=== PATIENT | female | born 2000 | race Caucasian/White ===

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

== ENCOUNTER 2018-03-13 19:01 | Emergency (ER) | payer OTHER ==
[2018-03-13 19:16] VITALS: BP 145/83; PULSE 112; O2SAT 97
--- NOTE | 2018-03-13 19:27 | ERPHSYRPT ---
- History of Present Illness Time Seen by Provider: 03/13/18 19:21 Source: patient, family Exam Limitations: no limitations Patient Subjective Stated Complaint: Cough Triage Nursing Assessment: Patient ambulated into ER and transferred self to bed. Patient A +O X 3. Patient complains of cough for 4 weeks. Patient states cough is sometimes productive with small amount of thin clear sputum. Patient is 30 weeks and has saw her OB dr and has tried Benadryl and Claritin with no relief. Patient states she has been coughing so hard her head hurts. Patient's lungs noted to be clear a/p lucretia. O2 95% on room air. Physician History: The patient is a 17-year-old at 30 week female with her complaining of a worsening cough for 4 weeks. She has seen her family doctor/OB /[employer] doctor 2 weeks ago and was told it was an allergy. She was given allergy medicine that has not helped. She denies fever or chills. He has a dry cough. 2 or 3 times over the course of the past month she has coughed so hard that she has vomited. Timing/Duration: week(s) (4), gradual onset, worse Cough Quality/Degree: dry cough Possible Cause: no prior episodes Modifying Factors: Improves With: nothing Associated Symptoms: cough, No shortness of breath Allergies/Adverse Reactions: No Known Drug Allergies Allergy (Verified 03/13/18 19:16) Hx Tetanus, Diphtheria Vaccination/Date Given: No Hx Influenza Vaccination/Date Given: No Hx Pneumococcal Vaccination/Date Given: No Immunizations Up to Date: Yes - Review of Systems Constitutional: No Fever, No Chills Eyes: No Symptoms Ears, Nose, & Throat: No Symptoms Respiratory: Cough, No Dyspnea, No Wheezing Cardiac: No Chest Pain, No Edema, No Syncope Abdominal/Gastrointestinal: No Abdominal Pain, No Nausea, No Vomiting, No Diarrhea Genitourinary Symptoms: No Dysuria Musculoskeletal: No Back Pain, No Neck Pain Skin: No Rash Neurological: No Dizziness, No Focal Weakness, No Sensory Changes Psychological: No Symptoms Endocrine: No Symptoms Hematologic/Lymphatic: No Symptoms Immunological/Allergic: No Symptoms All Other Systems: Reviewed and Negative - Past Medical History Pertinent Past Medical History: No Neurological History: No Pertinent History ENT History: No Pertinent History Cardiac History: No Pertinent History Respiratory History: No Pertinent History Endocrine Medical History: No Pertinent History Musculoskeletal History: No Pertinent History GI Medical History: No Pertinent History History: No Pertinent History Psycho-Social History: No Pertinent History Female Reproductive Disorders: No Pertinent History - Past Surgical History Past Surgical History: No Neuro Surgical History: No Pertinent History Cardiac: No Pertinent History Respiratory: No Pertinent History Gastrointestinal: No Pertinent History Genitourinary: No Pertinent History Musculoskeletal: No Pertinent History Female Surgical History: No Pertinent History - Social History Smoking Status: Never smoker Exposure to second hand smoke: Yes Drug Use: none Patient Lives Alone: No - Female History Hx Now: Yes Expected Date of Delivery: 05/19/18 - Nursing Vital Signs Nursing Vital Signs: Initial Vital Signs Temperature 97.5 F 03/13/18 19:06 Pulse Rate 112 H 03/13/18 19:06 Respiratory Rate 18 03/13/18 19:06 Blood Pressure 145/83 03/13/18 19:06 O2 Sat by Pulse Oximetry 97 03/13/18 19:06 Pain Scale Pain Intensity 0 - Physical Exam General Appearance: no apparent distress, alert Eye Exam: PERRL/EOMI, eyes nml inspection Ears, Nose, Throat Exam: normal ENT inspection, TMs normal, pharynx normal, moist mucous membranes Neck Exam: normal inspection, non-tender, supple, full range of motion Respiratory Exam: normal breath sounds, lungs clear, airway intact, No respiratory distress, No crackles/rales, No rhonchi, No wheezing Cardiovascular Exam: normal heart sounds, tachycardia Gastrointestinal/Abdomen Exam: soft, No tenderness Pelvic Exam: not done Rectal Exam: not done Back Exam: normal inspection, No CVA tenderness, No vertebral tenderness Extremity Exam: normal inspection, normal range of motion Neurologic Exam: alert, oriented x 3, cooperative, normal mood/affect, sensation nml, No motor deficits Skin Exam: normal color, warm, dry, No rash Lymphatic Exam: No adenopathy SpO2 Interpretation: normal SpO2: 97 Oxygen Delivery: Room Air - Progress Progress: unchanged Blood Culture(s) Obtained: No Antibiotics given: No Counseled pt/family regarding: diagnosis, need for follow-up - Departure Time of Disposition: 19:24 Departure Disposition: Home Clinical Impression: Bronchitis Condition: Stable Critical Care Time: No Referrals: KAT CARMONA MD [Primary Care Provider] - Additional Instructions: You have bronchitis. Take azithromycin 500 mg on day one, followed by 250 mg daily for days 2 through 5. Take Tylenol as needed for discomfort. Follow-up with your OB doctor in 1-2 days. Prescriptions: Azithromycin 250 mg [Zithromax 250 MG TABLET] 250 mg PO ZPACK #6 tablet
== END 2018-03-13 19:30 | disposition home or self-care (01) ==
LOC: ED 19:01
DX: O26.893 Other specified pregnancy related conditions, third trimester (principal); J40 Bronchitis, not specified as acute or chronic; Z3A.30 30 weeks gestation of pregnancy
CPT/HCPCS: 99283

== ENCOUNTER 2018-03-16 13:49 | Observation (INO) | payer OTHER ==
[2018-03-16 14:21] LABS: BASOPHIL % 0.3 % (0.0-0.4); Basophil (Absolute #) 0.04 (0-0.4); Eosinophil % 9.3 % (0.00-5.0); Eosinophil (Absolute #) 1.07 (0-0.5); Granulocyte Absolute (ANC) 7.91 (1.4-6.9); Granulocytes % 68.6 % (36.0-66.0); Hematocrit 33.8 % (35-47); Hemoglobin 11.3 gm/dl (12.0-16.0); Lymphocyte (Absolute #) 1.73 (1.0-4.6); Mean Cell Volume 90.4 fl (78-100); Mean Corpuscular Hemoglobin 30.2 pg (26-32); Mean Corpuscular Hgb Concent. 33.4 g/dl (32-36); Mean Platelet Volume 10.5 fl (6-9.5); Monocyte (Absolute #) 0.78 (0.0-1.3); Monocytes % 6.8 % (0.0-12.0); Platelet Count 266 K/mm3 (150-450); Red Blood Count 3.74 M/mm3 (4.1-5.4); White Blood Count 11.5 K/mm3 (4.0-10.5)
[2018-03-16] MEDS ORDERED: Lactated Ringers 1,000 ML IV ONE (14:30)
[2018-03-16 14:36] LABS: ANION GAP 11.9 MEQ/L (5-15); BLOOD UREA NITROGEN 6 mg/dL (7-17); CHLORIDE 107 mmol/L (98-107); Calcium 8.7 mg/dL (8.4-10.2); Carbon Dioxide 22 mmol/L (22-30); Creatinine 1 0.46 mg/dL (0.52-1.04); Glucose 85 mg/dL (74-106); Potassium 3.8 mmol/L (3.5-5.1); SODIUM 138 mmol/L (137-145)
--- NOTE | 2018-03-16 14:44 | XRAY ---
Indication: Cough and congestion 6 weeks. Comparison: February 20, 2017. PA/lateral chest again demonstrates normal heart, lungs, and bony thorax.
[2018-03-16] MEDS ORDERED: PROVENTIL COMMON CANISTER IH SCH (15:00)
[2018-03-16 15:19] VITALS: O2SAT 98
[2018-03-16] MEDS ORDERED: PROVENTIL 2.5 MG/3 ML NEB IH PRN (15:19)
[2018-03-16] MEDS: Lactated Ringers 1,000 ML IV SCH (16:05)
[2018-03-16] MEDS: ROCEPHIN 1 Gm-D5w 50 ml Bag** 1 G/50 ML IVPB IV SCH (16:05)
[2018-03-16] MEDS: Pepcid 20 MG PO SCH (21:32)
[2018-03-16] MEDS: Tussionex Pennkinetic Susp PO SCH (21:50)
[2018-03-16] MEDS: Zofran 4 MG/2 ML VIAL IV PRN (23:32)
[2018-03-17] MEDS: Lactated Ringers 1,000 ML IV SCH ×2 (00:34→08:41)
[2018-03-17] MEDS ORDERED: Celestone Soluspan 6MG/ML IM ONE (07:49)
[2018-03-17] MEDS: Pepcid 20 MG PO SCH (08:56)
[2018-03-17] MEDS: Zofran 4 MG/2 ML VIAL IV PRN (08:57)
[2018-03-17] MEDS ORDERED: Flonase NASAL NS SCH (10:00)
[2018-03-17 10:08] LABS: Hematocrit 31.5 % (35-47); Hemoglobin 10.6 gm/dl (12.0-16.0); Mean Cell Volume 90.3 fl (78-100); Mean Corpuscular Hgb Concent. 33.7 g/dl (32-36); Mean Platelet Volume 10.5 fl (6-9.5); Platelet Count 235 K/mm3 (150-450); Red Blood Count 3.49 M/mm3 (4.1-5.4); Red Cell Distribution Width 13.1 % (11.5-14.0); White Blood Count 10.4 K/mm3 (4.0-10.5)
[2018-03-17 10:09] LABS: Mean Corpuscular Hemoglobin 30.3 pg (26-32)
[2018-03-17] MEDS: Tussionex Pennkinetic Susp PO SCH (10:23)
[2018-03-17 11:02] LABS: ABO TYPING O; Antibody Screen NEGATIVE (NEGATIVE); RH TYPING POSITIVE
[2018-03-17] MEDS: ROCEPHIN 1 Gm-D5w 50 ml Bag** 1 G/50 ML IVPB IV SCH (12:14)
[2018-03-17 15:04] VITALS: BP 122/73; PULSE 106
[2018-03-17] MEDS ORDERED: AFRIN NASAL SPRAY NS SCH (22:00)
[2018-03-18 04:42] LABS: HIV Antigen/Antibody Combo Non Reactive (Non Reactive)
[2018-03-18 08:53] LABS: Hepatitis B Sur Ag Screen Non Reactive (Non Reactive); Hepatitis C Antibody by EIA Non Reactive (Non Reactive)
[2018-03-20 11:52] LABS: Immune Status: Immune
[2018-03-20 14:10] LABS: RPR Screen Non Reactive (Non Reactive)
== END 2018-03-17 14:45 | disposition home or self-care (01) ==
LOC: MED SURG 13:49
PROVIDERS: ADMIT Family Medicine; ATTEND Family Medicine
DX: J32.9 Chronic sinusitis, unspecified (principal); R05 Cough
CPT/HCPCS: 36415; 71046; 80048; 80055; 85025; 86803; 87491; 87591; 94150; G0378; J0696; J0702; J2405; A9270-GY

== ENCOUNTER 2018-05-07 00:25 | Observation (INO) | payer MEDICAID ==
[2018-05-07 01:04] VITALS: BP 124/71; PULSE 95
[2018-05-07 01:13] LABS: Amphetamine,Urine NEGATIVE (NEGATIVE); Barbiturate,Urine NEGATIVE (NEGATIVE); Benzodiazepine,Urine NEGATIVE (NEGATIVE); Cocaine,Urine NEGATIVE (NEGATIVE); Methadone,Urine NEGATIVE (NEGATIVE); Opiate,Urine NEGATIVE (NEGATIVE); PCP,Urine NEGATIVE (NEGATIVE); THC,Urine NEGATIVE (NEGATIVE)
[2018-05-07] MEDS ORDERED: TYLENOL 325 MG ONE (01:13)
[2018-05-07] MEDS ORDERED: TYLENOL 325 MG PO ONE (01:20)
[2018-05-07 02:26] LABS: Appearance SLIGHTLY CLOUDY (CLEAR); Bilirubin NEGATIVE (NEGATIVE); Blood NEGATIVE Ery/ul (0-5); Glucose NEGATIVE (NEGATIVE); Ketones NEGATIVE (NEGATIVE); Leukocyte Esterase LARGE (NEGATIVE); Nitrite NEGATIVE (NEGATIVE); Protein,Urine Dip NEGATIVE (Negative); Specific Gravity 1.004 (1.005-1.025); Urobilinogen NEGATIVE mg/dL (0-1)
== END 2018-05-07 03:05 | disposition home or self-care (01) ==
LOC: OB 00:25 → UNDOADMOB 00:25 → UNDODISOB 03:05
PROVIDERS: ADMIT Family Medicine; ATTEND Family Medicine
DX: Z34.83 Encounter for supervision of other normal pregnancy, third trimester (principal)
CPT/HCPCS: 80307; 81001; 87086; G0378; A9270-GY

== ENCOUNTER 2018-05-16 04:52 | Inpatient (IN) | payer MEDICAID ==
[2018-05-16] MEDS ORDERED: Lactated Ringers 1,000 ML IV SCH (05:00)
[2018-05-16] MEDS ORDERED: BRETHINE 1 MG/ML SQ PRN (05:00)
[2018-05-16] MEDS ORDERED: XYLOCAINE 1% HCL 20 ML MDV IJ PRN (05:00)
[2018-05-16] MEDS ORDERED: PITOCIN 30 UNITS/ LR 500 ML 500 ML IV SCH ×2 (05:00)
[2018-05-16 05:28] LABS: BASOPHIL % 0.4 % (0.0-0.4); Basophil (Absolute #) 0.04 (0-0.4); Eosinophil % 2.2 % (0.00-5.0); Eosinophil (Absolute #) 0.24 (0-0.5); Granulocytes % 66.5 % (36.0-66.0); Hematocrit 38.1 % (35-47); Hemoglobin 12.6 gm/dl (12.0-16.0); Lymphocyte (Absolute #) 2.63 (1.0-4.6); Lymphocytes % 24.3 % (24.0-44.0); Mean Cell Volume 90.5 fl (78-100); Mean Corpuscular Hemoglobin 29.9 pg (26-32); Mean Corpuscular Hgb Concent. 33.1 g/dl (32-36); Mean Platelet Volume 11.2 fl (6-9.5); Monocyte (Absolute #) 0.71 (0.0-1.3); Monocytes % 6.6 % (0.0-12.0); Platelet Count 238 K/mm3 (150-450); Red Blood Count 4.21 M/mm3 (4.1-5.4); Red Cell Distribution Width 13.3 % (11.5-14.0); White Blood Count 10.8 K/mm3 (4.0-10.5)
[2018-05-16 06:50] LABS: Amphetamine,Urine NEGATIVE (NEGATIVE); Barbiturate,Urine NEGATIVE (NEGATIVE); Benzodiazepine,Urine NEGATIVE (NEGATIVE); Cocaine,Urine NEGATIVE (NEGATIVE); Methadone,Urine NEGATIVE (NEGATIVE); Opiate,Urine NEGATIVE (NEGATIVE); PCP,Urine NEGATIVE (NEGATIVE); THC,Urine NEGATIVE (NEGATIVE)
[2018-05-16] MEDS ORDERED: Lactated Ringers 1,000 ML IV ONE (10:37)
[2018-05-16] MEDS ORDERED: OB EPIDURAL NAROPIN/SUFENTANIL IN NACL EPIDURAL PRN (10:37)
[2018-05-16] MEDS ORDERED: Ephedrine Sulfate 50 MG/ML IV PRN (10:37)
[2018-05-16] MEDS ORDERED: Dulcolax 10 MG SUPP PR PRN (14:52)
[2018-05-16] MEDS ORDERED: Anucort-HC SUPPOSITORY PR PRN (14:52)
[2018-05-16] MEDS ORDERED: LANSINOH 40 GM TOP PRN (14:52)
[2018-05-16] MEDS ORDERED: Mylicon 80MG PO PRN (14:52)
[2018-05-16] MEDS ORDERED: Ambien 10 MG PO PRN (14:52)
[2018-05-16] MEDS ORDERED: NORCO 5/325 MG PO PRN (14:52)
[2018-05-16] MEDS ORDERED: CORTISONE 1% CREAM TP PRN (14:52)
[2018-05-16] MEDS ORDERED: TUCKS TP PRN (14:52)
[2018-05-16] MEDS ORDERED: Dermoplast Spray TP PRN (14:52)
[2018-05-16] MEDS ORDERED: Zofran 4 MG/2 ML VIAL IV PRN (17:42)
[2018-05-16] MEDS: MOTRIN 400 MG PO PRN (18:31)
[2018-05-16] MEDS: Colace 100 MG PO SCH (22:44)
[2018-05-16] MEDS: TYLENOL EXTRA STRENGTH 500 MG PO PRN (23:34)
[2018-05-17] MEDS: MOTRIN 400 MG PO PRN ×2 (03:11→11:42)
[2018-05-17 06:31] LABS: BASOPHIL % 0.2 % (0.0-0.4); Basophil (Absolute #) 0.02 (0-0.4); Eosinophil % 2.1 % (0.00-5.0); Eosinophil (Absolute #) 0.25 (0-0.5); Granulocyte Absolute (ANC) 8.44 (1.4-6.9); Granulocytes % 69.5 % (36.0-66.0); Hematocrit 33.8 % (35-47); Hemoglobin 11.3 gm/dl (12.0-16.0); Lymphocyte (Absolute #) 2.38 (1.0-4.6); Lymphocytes % 19.6 % (24.0-44.0); Mean Cell Volume 90.6 fl (78-100); Mean Corpuscular Hgb Concent. 33.4 g/dl (32-36); Mean Platelet Volume 11.2 fl (6-9.5); Monocyte (Absolute #) 1.04 (0.0-1.3); Monocytes % 8.6 % (0.0-12.0); Platelet Count 210 K/mm3 (150-450); Red Blood Count 3.73 M/mm3 (4.1-5.4); Red Cell Distribution Width 13.1 % (11.5-14.0); White Blood Count 12.1 K/mm3 (4.0-10.5)
[2018-05-17 06:45] LABS: Mean Corpuscular Hemoglobin 30.2 pg (26-32)
[2018-05-17] MEDS: TYLENOL EXTRA STRENGTH 500 MG PO PRN (08:24)
[2018-05-17] MEDS: Colace 100 MG PO SCH (08:24)
[2018-05-17] MEDS ORDERED: FERREX 150 PO SCH (10:00)
[2018-05-17 17:51] VITALS: BP 113/87; PULSE 85
== END 2018-05-17 18:05 | disposition home or self-care (01) | DRG 807 ==
LOC: OB 04:52 → OBSVTOIN 10:13
PROVIDERS: ADMIT Family Medicine; ATTEND Family Medicine
PROC: 10E0XZZ Delivery of Products of Conception, External Approach (ICD-10-PCS; principal; 2018-05-16)
DX: O80 Encounter for full-term uncomplicated delivery (principal); Z37.0 Single live birth; Z3A.39 39 weeks gestation of pregnancy
CPT/HCPCS: 36415; 80307; 85025; G0378; J2405; J2590; J2795; A9270-GY

== ENCOUNTER 2018-05-26 14:22 | Emergency (ER) | payer MEDICAID ==
[2018-05-26 14:55] VITALS: BP 98/56; O2SAT 98
--- NOTE | 2018-05-26 14:58 | ERPHSYRPT ---
- History of Present Illness Time Seen by Provider: 05/26/18 14:53 Historian: patient Exam Limitations: no limitations Physician History: The patient is a 18-year-old female who just delivered a female baby vaginally one week ago. This is her second child. She complains of not having a bowel movement for one week. The same thing happened after the of her first child. She took 2 laxatives an hour ago and has not had a bowel movement. Her appetite has decreased because she feels full. She wants to make sure she has a bowel movement by 6 PM because she has a [employer] to go to. Timing/Duration: week(s) (1), gradual onset Activities at Onset: none Quality: fullness Severity of Pain-Max: mild Severity of Pain-Current: mild Modifying Factors: Improves With: nothing Associated Symptoms: other (constipation) Previous symptoms: same symptoms as today Allergies/Adverse Reactions: No Known Drug Allergies Allergy (Verified 05/16/18 05:35) Home Medications: Vits W-Ca,Fe,FA(<1Mg) [] 1 each PO DAILY 03/16/18 [History] Ranitidine HCl [Zantac] 150 mg PO BID 03/16/18 [History] Montelukast Sodium 10 mg [Singulair 10 MG] 10 mg PO DAILY 05/16/18 [History] Ondansetron HCl [Zofran] 4 mg PO Q8H PRN 05/16/18 [History] Hx Tetanus, Diphtheria Vaccination/Date Given: No Hx Influenza Vaccination/Date Given: No Hx Pneumococcal Vaccination/Date Given: No - Review of Systems Constitutional: No Fever, No Chills Eyes: No Symptoms Ears, Nose, & Throat: No Symptoms Respiratory: No Cough, No Dyspnea Cardiac: No Chest Pain, No Edema, No Syncope Abdominal/Gastrointestinal: Abdominal Pain, Constipation Genitourinary Symptoms: No Dysuria Musculoskeletal: No Back Pain, No Neck Pain Skin: No Rash Neurological: No Dizziness, No Focal Weakness, No Sensory Changes Psychological: No Symptoms Endocrine: No Symptoms Hematologic/Lymphatic: No Symptoms Immunological/Allergic: No Symptoms All Other Systems: Reviewed and Negative - Past Medical History Pertinent Past Medical History: Yes Neurological History: No Pertinent History ENT History: No Pertinent History Cardiac History: No Pertinent History Respiratory History: No Pertinent History Endocrine Medical History: No Pertinent History Musculoskeletal History: No Pertinent History GI Medical History: No Pertinent History History: No Pertinent History Psycho-Social History: No Pertinent History Female Reproductive Disorders: No Pertinent History Other Medical History: environmental allergies - Past Surgical History Past Surgical History: No Neuro Surgical History: No Pertinent History Cardiac: No Pertinent History Respiratory: No Pertinent History Gastrointestinal: No Pertinent History Genitourinary: No Pertinent History Musculoskeletal: No Pertinent History Female Surgical History: No Pertinent History - Social History Smoking Status: Former smoker Exposure to second hand smoke: Yes (low) Drug Use: none Patient Lives Alone: No - Nursing Vital Signs Nursing Vital Signs: Initial Vital Signs Temperature 97.4 F 05/26/18 14:41 Pulse Rate 78 05/26/18 14:41 Respiratory Rate 16 05/26/18 14:41 Blood Pressure 98/56 05/26/18 14:41 O2 Sat by Pulse Oximetry 98 05/26/18 14:41 Pain Scale Pain Intensity 5 - Physical Exam General Appearance: no apparent distress, alert Eye Exam: PERRL/EOMI, eyes nml inspection Ears, Nose, Throat Exam: normal ENT inspection, pharynx normal, moist mucous membranes Neck Exam: normal inspection, non-tender, supple, full range of motion Respiratory Exam: normal breath sounds, lungs clear, No respiratory distress Cardiovascular Exam: regular rate/rhythm, normal heart sounds Gastrointestinal/Abdomen Exam: soft, No tenderness, No mass Pelvic Exam: not done Rectal Exam: not done Back Exam: normal inspection, normal range of motion, No CVA tenderness, No vertebral tenderness Extremity Exam: normal inspection, normal range of motion, pelvis stable Neurologic Exam: alert, oriented x 3, cooperative, normal mood/affect, nml cerebellar function, sensation nml, No motor deficits Skin Exam: normal color, warm, dry SpO2 Interpretation: normal - Radiology Exams Abdomen X-ray Interpretation: Reviewed by me, Teleradiologist Report (per Dr Matos), Other (fecal stasis with rectal impaction.) Ordered Tests: Active Orders 24 hr Category Date Time Status KUB Stat Exams 05/26/18 14:57 Taken - Progress Progress: unchanged Progress Note: 05/26/18 14:57 The patient will have an abdominal plain film. The patient declined that I examine her. The patient wants to have magnesium citrate purchased from [employer]. 05/26/18 15:24 The abdominal x-ray showed fecal stasis with rectal impaction. The patient was offered of manual disimpaction and the patient declined. Counseled pt/family regarding: rad results - Departure Time of Disposition: 15:19 Departure Disposition: Home Clinical Impression: Constipation Condition: Stable Critical Care Time: No Referrals: KAT CARMONA MD [Primary Care Provider] - Additional Instructions: You have constipation and impaction in the rectum. You declined physical removal of the impaction. Take mag citrate one full bottle and stay well- hydrated. Follow-up with Dr. Carmona as needed.
--- NOTE | 2018-05-26 15:19 | XRAY ---
Indication: Constipation. Comparison: None KUB demonstrates mild scattered colonic fecal debris with mild rectal impaction. Solid organs unremarkable. Osseous structures intact with mild levoscoliosis. Impression: Mild fecal stasis with rectal impaction.
[2018-05-26 15:42] VITALS: PULSE 76
== END 2018-05-26 15:43 | disposition home or self-care (01) ==
LOC: ED 14:22
DX: O90.89 Other complications of the puerperium, not elsewhere classified (principal); K59.00 Constipation, unspecified; K56.49 Other impaction of intestine
CPT/HCPCS: 74018; 99283

== ENCOUNTER 2018-07-09 16:44 | Emergency (ER) | payer OTHER ==
--- NOTE | 2018-07-09 17:29 | ERPHSYRPT ---
- History of Present Illness Time Seen by Provider: 07/09/18 17:23 Historian: patient Exam Limitations: no limitations Patient Subjective Stated Complaint: pt reports diarrhea that started approx 8 hours ago. States she has had 10 episodes watery diarrhea with nausea. denies vomiting and fever. Triage Nursing Assessment: PINK/WARM/DRY, RESP EASY, A&OX4, STEADY GAIT, PALE/ DRY LIPS AND ORAL MUCOSA NOTED. AFEBRILE. Physician History: The patient is a 18-year-old female with her complaining of watery diarrhea that began this morning. She has had multiple episodes, at least 10 in number. She also has nausea without vomiting. She has tried to drink water but is unable to because of the nausea. She is unable to eat anything. She is lightheaded when she stands. She complains also of some mild abdominal cramping. Her past medical history is unremarkable. Timing/Duration: today, sudden, worse Activities at Onset: none Quality: cramping Abdominal Pain Onset Location: generalized abdomen Pain Radiation: no radiation Severity of Pain-Max: moderate Severity of Pain-Current: moderate Modifying Factors: Improves With: nothing Associated Symptoms: nausea, other (diarrhea), No vomiting Previous symptoms: no prior history Allergies/Adverse Reactions: No Known Drug Allergies Allergy (Verified 05/16/18 05:35) Home Medications: Vits W-Ca,Fe,FA(<1Mg) [] 1 each PO DAILY 03/16/18 [History] Ranitidine HCl [Zantac] 150 mg PO BID 03/16/18 [History] Montelukast Sodium 10 mg [Singulair 10 MG] 10 mg PO DAILY 05/16/18 [History] Ondansetron HCl [Zofran] 4 mg PO Q8H PRN 05/16/18 [History] Hx Tetanus, Diphtheria Vaccination/Date Given: Yes Hx Influenza Vaccination/Date Given: Yes Hx Pneumococcal Vaccination/Date Given: No Immunizations Up to Date: Yes - Review of Systems Constitutional: No Fever, No Chills Eyes: No Symptoms Ears, Nose, & Throat: No Symptoms Respiratory: No Cough, No Dyspnea Cardiac: No Chest Pain, No Edema, No Syncope Abdominal/Gastrointestinal: Abdominal Pain, Nausea, Diarrhea, No Vomiting Genitourinary Symptoms: No Dysuria Musculoskeletal: No Back Pain, No Neck Pain Skin: No Rash Neurological: No Dizziness, No Focal Weakness, No Sensory Changes Psychological: No Symptoms Endocrine: No Symptoms Hematologic/Lymphatic: No Symptoms Immunological/Allergic: No Symptoms All Other Systems: Reviewed and Negative - Past Medical History Pertinent Past Medical History: Yes Neurological History: No Pertinent History ENT History: No Pertinent History Cardiac History: No Pertinent History Respiratory History: No Pertinent History Endocrine Medical History: No Pertinent History Musculoskeletal History: No Pertinent History GI Medical History: No Pertinent History History: No Pertinent History Psycho-Social History: No Pertinent History Female Reproductive Disorders: No Pertinent History Other Medical History: environmental allergies - Past Surgical History Past Surgical History: No Neuro Surgical History: No Pertinent History Cardiac: No Pertinent History Respiratory: No Pertinent History Gastrointestinal: No Pertinent History Genitourinary: No Pertinent History Musculoskeletal: No Pertinent History Female Surgical History: No Pertinent History - Social History Smoking Status: Never smoker Exposure to second hand smoke: No Drug Use: none Patient Lives Alone: No - Female History Hx Last Menstrual Period: 06/23/18 Hx Now: No - Nursing Vital Signs Nursing Vital Signs: Initial Vital Signs Pulse Rate 90 07/09/18 17:35 Respiratory Rate 20 07/09/18 17:35 Blood Pressure 110/76 07/09/18 17:35 O2 Sat by Pulse Oximetry 98 07/09/18 17:35 Pain Scale Pain Intensity 4 - Physical Exam General Appearance: mild distress Eye Exam: PERRL/EOMI, eyes nml inspection Ears, Nose, Throat Exam: dry mucous membranes Neck Exam: normal inspection, non-tender, supple, full range of motion Respiratory Exam: normal breath sounds, lungs clear, No respiratory distress Cardiovascular Exam: regular rate/rhythm, normal heart sounds Gastrointestinal/Abdomen Exam: soft, No tenderness, No mass Pelvic Exam: not done Rectal Exam: not done Back Exam: normal inspection, normal range of motion, No CVA tenderness, No vertebral tenderness Extremity Exam: normal inspection, normal range of motion, pelvis stable Neurologic Exam: alert, oriented x 3, cooperative, normal mood/affect, nml cerebellar function, sensation nml, No motor deficits Skin Exam: normal color, warm, dry SpO2 Interpretation: normal O2 Delivery: Room Air - Radiology Exams Abdomen X-ray Interpretation: Interpreted by me, Negative (discharge.) Ordered Tests: Active Orders 24 hr Category Date Time Status IV Insertion STAT Care 07/09/18 17:31 Active KUB Stat Exams 02/10/19 17:32 Taken BMP Stat Lab 07/09/18 17:50 Completed CBC W DIFF Stat Lab 07/09/18 17:50 Completed HCG QUALITATIVE,SERUM Stat Lab 07/09/18 17:50 Completed Lactic Acid Stat Lab 07/09/18 17:31 Completed Medication Summary Discontinued Medications Generic Name Dose Route Start Last Admin Trade Name Rick PRN Reason Stop Dose Admin Sodium Chloride 1,000 mls @ 999 mls/hr 07/09/18 17:31 07/09/18 17:58 Sodium Chloride 0.9% 1000 Ml IV 07/09/18 18:31 999 mls/hr .Q1H1M STA Administration Sodium Chloride Confirm 07/09/18 17:55 Sodium Chloride 0.9% 1000 Ml Administered 07/09/18 17:56 Dose 1,000 mls @ ud .ROUTE .STK-MED ONE Ondansetron HCl 4 mg 07/09/18 17:31 07/09/18 17:58 Zofran 4 Mg/2 Ml Vial IV 07/09/18 17:32 4 mg STAT ONE Administration Ondansetron HCl Confirm 07/09/18 17:55 Zofran 4 Mg/2 Ml Vial Administered 07/09/18 17:56 Dose 4 mg .ROUTE .STK-MED ONE Lab/Rad Data: Laboratory Result Diagrams 07/09/18 17:50 07/09/18 17:50 Laboratory Results 07/09/18 07/09/18 07/09/18 Range/Units 17:50 17:50 17:50 WBC 10.4 (4.0-10.5) K/mm3 RBC 4.96 (4.1-5.4) M/mm3 Hgb 14.2 (12.0-16.0) gm/dl Hct 43.2 (35-47) % MCV 87.1 (78-100) fl MCH 28.6 (26-32) pg MCHC 32.9 (32-36) g/dl RDW 12.3 (11.5-14.0) % Plt Count 374 (150-450) K/mm3 MPV 10.7 H (6-9.5) fl Gran % 74.5 H (36.0-66.0) % Eos # (Auto) 1.02 H (0-0.5) Absolute Lymphs (auto) 1.05 (1.0-4.6) Absolute Monos (auto) 0.56 (0.0-1.3) Lymphocytes % 10.1 L (24.0-44.0) % Monocytes % 5.4 (0.0-12.0) % Eosinophils % 9.8 H (0.00-5.0) % Basophils % 0.2 (0.0-0.4) % Absolute Granulocytes 7.78 H (1.4-6.9) Basophils # 0.02 (0-0.4) Sodium 142 (137-145) mmol/L Potassium 4.0 (3.5-5.1) mmol/L Chloride 108 H (98-107) mmol/L Carbon Dioxide 20 L (22-30) mmol/L Anion Gap 17.9 H (5-15) MEQ/L BUN 14 (7-17) mg/dL Creatinine 0.78 (0.52-1.04) mg/dL Estimated GFR > 60.0 ML/MIN Glucose 89 (74-106) mg/dL Lactic Acid (0.4-2.0) Calcium 9.7 (8.4-10.2) mg/dL Serum , Qual NEGATIVE (Negative) 07/09/18 Range/Units 17:31 WBC (4.0-10.5) K/mm3 RBC (4.1-5.4) M/mm3 Hgb (12.0-16.0) gm/dl Hct (35-47) % MCV (78-100) fl MCH (26-32) pg MCHC (32-36) g/dl RDW (11.5-14.0) % Plt Count (150-450) K/mm3 MPV (6-9.5) fl Gran % (36.0-66.0) % Eos # (Auto) (0-0.5) Absolute Lymphs (auto) (1.0-4.6) Absolute Monos (auto) (0.0-1.3) Lymphocytes % (24.0-44.0) % Monocytes % (0.0-12.0) % Eosinophils % (0.00-5.0) % Basophils % (0.0-0.4) % Absolute Granulocytes (1.4-6.9) Basophils # (0-0.4) Sodium (137-145) mmol/L Potassium (3.5-5.1) mmol/L Chloride (98-107) mmol/L Carbon Dioxide (22-30) mmol/L Anion Gap (5-15) MEQ/L BUN (7-17) mg/dL Creatinine (0.52-1.04) mg/dL Estimated GFR ML/MIN Glucose (74-106) mg/dL Lactic Acid 1.1 (0.4-2.0) Calcium (8.4-10.2) mg/dL Serum , Qual (Negative) - Progress Progress: improved ( I want) Progress Note: 07/09/18 18:50 Improved after zofran 4 mg and fluids by IV. Counseled pt/family regarding: lab results, diagnosis, rad results - Departure Time of Disposition: 18:51 Departure Disposition: Home Clinical Impression: Diarrhea, Dehydration Condition: Stable Critical Care Time: No Referrals: KAT CARMONA MD [Primary Care Provider] - Additional Instructions: You had diarrhea today that has led to mild dehydration. You were given Zofran 4 mg and fluids by IV in the ER. Began with a bland diet and advance as tolerated. Stay well-hydrated. Follow-up with your primary medical doctor as needed.
[2018-07-09] MEDS ORDERED: Sodium Chloride 0.9% 1000 ML 1,000 ML IV STA (17:31)
[2018-07-09] MEDS ORDERED: Zofran 4 MG/2 ML VIAL IV ONE (17:31)
[2018-07-09] MEDS ORDERED: Zofran 4 MG/2 ML VIAL ONE (17:55)
[2018-07-09] MEDS ORDERED: Sodium Chloride 0.9% 1000 ML 1,000 ML ONE (17:55)
[2018-07-09 17:56] VITALS: PULSE 84; O2SAT 94
[2018-07-09 18:10] LABS: BASOPHIL % 0.2 % (0.0-0.4); Basophil (Absolute #) 0.02 (0-0.4); Eosinophil % 9.8 % (0.00-5.0); Eosinophil (Absolute #) 1.02 (0-0.5); Granulocyte Absolute (ANC) 7.78 (1.4-6.9); Granulocytes % 74.5 % (36.0-66.0); Hematocrit 43.2 % (35-47); Hemoglobin 14.2 gm/dl (12.0-16.0); Lymphocyte (Absolute #) 1.05 (1.0-4.6); Lymphocytes % 10.1 % (24.0-44.0); Mean Cell Volume 87.1 fl (78-100); Mean Corpuscular Hemoglobin 28.6 pg (26-32); Mean Corpuscular Hgb Concent. 32.9 g/dl (32-36); Mean Platelet Volume 10.7 fl (6-9.5); Monocyte (Absolute #) 0.56 (0.0-1.3); Monocytes % 5.4 % (0.0-12.0); Platelet Count 374 K/mm3 (150-450); Red Blood Count 4.96 M/mm3 (4.1-5.4); Red Cell Distribution Width 12.3 % (11.5-14.0); White Blood Count 10.4 K/mm3 (4.0-10.5)
[2018-07-09 18:28] LABS: ANION GAP 17.9 MEQ/L (5-15); BLOOD UREA NITROGEN 14 mg/dL (7-17); CHLORIDE 108 mmol/L (98-107); Calcium 9.7 mg/dL (8.4-10.2); Carbon Dioxide 20 mmol/L (22-30); Creatinine 1 0.78 mg/dL (0.52-1.04); Glucose 89 mg/dL (74-106); SODIUM 142 mmol/L (137-145)
[2018-07-09 19:09] VITALS: BP 115/77
--- NOTE | 2018-07-09 20:43 | XRAY ---
Indication: Diarrhea. Loss of appetite. Comparison: May 26, 2018. KUB nonacute and nonobstructed. Solid organs and osseous structures are unremarkable. Lung bases clear. Impression: Negative KUB.
== END 2018-07-09 19:10 | disposition home or self-care (01) ==
LOC: ED 16:44
DX: R19.7 Diarrhea, unspecified (principal); E86.0 Dehydration
CPT/HCPCS: 36000; 36415; 74018; 80048; 81025; 83605; 85025; 96360; 96374; 99284; J2405

== ENCOUNTER 2018-12-25 20:49 | Emergency (ER) | payer OTHER ==
[2018-12-25] MEDS ORDERED: Pepcid 20 MG PO ONE (21:57)
[2018-12-25] MEDS ORDERED: Pepcid 20 MG ONE (22:02)
[2018-12-25] MEDS ORDERED: DELTASONE 20 MG ONE (22:02)
--- NOTE | 2018-12-25 22:07 | ERPHSYRPT ---
- History of Present Illness Time Seen by Provider: 12/25/18 21:30 Source: patient, family Exam Limitations: no limitations Patient Subjective Stated Complaint: Allergic reaction/lucretia eye swelling Triage Nursing Assessment: Patient ambulated back to ED and transferred self to bed. Patient A+O X 3. Patient's skin pink, warm and dry. Patient complains of allergic reaction after using clear eyes eye drops for itchy eye relief and eye allergy relief. Patient applied one drop of each med into eye prior to coming in. Patient states a few minutes after second drop she devoloped bumps around eye and swelling. Patient's lucretia eyes noted to be swollen and red. Patient states her corneas feels numb. Physician History: 18 y/o white female with itching and burning of bilat eyes today. pt then put allergy eye drops into bilat eyes. pt noticed rash and itchiness around bilat eyes. no known other exposures. 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 sx improved but not completely resolved. Timing/Duration: today Severity: mild Modifying Factors: Improves With: medication Associated Symptoms: denies symptoms, No nausea, No vomiting, No abdominal pain , No shortness of breath Allergies/Adverse Reactions: No Known Drug Allergies Allergy (Verified 12/25/18 20:57) Hx Tetanus, Diphtheria Vaccination/Date Given: Yes Hx Influenza Vaccination/Date Given: Yes Hx Pneumococcal Vaccination/Date Given: No Immunizations Up to Date: Yes - Review of Systems Constitutional: No Symptoms Eyes: No Symptoms Ears, Nose, & Throat: No Symptoms, No Hoarse Respiratory: No Symptoms, No Dyspnea, No Stridor, No Wheezing Cardiac: No Symptoms Abdominal/Gastrointestinal: No Symptoms Genitourinary Symptoms: No Symptoms Musculoskeletal: No Symptoms Skin: Rash Neurological: No Symptoms Psychological: No Symptoms Endocrine: No Symptoms Hematologic/Lymphatic: No Symptoms Immunological/Allergic: No Symptoms All Other Systems: Reviewed and Negative - Past Medical History Pertinent Past Medical History: Yes Neurological History: No Pertinent History ENT History: No Pertinent History Cardiac History: No Pertinent History Respiratory History: No Pertinent History Endocrine Medical History: No Pertinent History Musculoskeletal History: No Pertinent History GI Medical History: No Pertinent History History: No Pertinent History Psycho-Social History: No Pertinent History Female Reproductive Disorders: No Pertinent History Other Medical History: environmental allergies - Past Surgical History Past Surgical History: No Neuro Surgical History: No Pertinent History Cardiac: No Pertinent History Respiratory: No Pertinent History Gastrointestinal: No Pertinent History Genitourinary: No Pertinent History Musculoskeletal: No Pertinent History Female Surgical History: No Pertinent History - Social History Smoking Status: Never smoker Exposure to second hand smoke: Yes Drug Use: none Patient Lives Alone: No - Female History Hx Last Menstrual Period: depo shot Hx Now: No - Nursing Vital Signs Nursing Vital Signs: Initial Vital Signs Temperature 98.3 F 12/25/18 20:58 Pulse Rate 94 H 12/25/18 20:58 Respiratory Rate 20 12/25/18 20:58 Blood Pressure 131/89 12/25/18 20:58 O2 Sat by Pulse Oximetry 99 12/25/18 20:58 Pain Scale Pain Intensity 0 - Physical Exam General Appearance: no apparent distress, alert, anxiety Eye Exam: PERRL/EOMI, eyes nml inspection Ears, Nose, Throat Exam: normal ENT inspection, moist mucous membranes Neck Exam: normal inspection, non-tender, supple, full range of motion Respiratory Exam: normal breath sounds, lungs clear, airway intact, No chest tenderness, No respiratory distress Cardiovascular Exam: regular rate/rhythm, normal heart sounds, normal peripheral pulses Gastrointestinal/Abdomen Exam: soft, normal bowel sounds, No tenderness Pelvic Exam: not done Rectal Exam: not done Back Exam: normal inspection, normal range of motion, vertebral tenderness, No CVA tenderness Extremity Exam: normal inspection, normal range of motion, pelvis stable Neurologic Exam: alert, oriented x 3, cooperative, 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 Skin Exam: rash (around bilat eyes) Lymphatic Exam: No adenopathy SpO2 Interpretation: normal SpO2: 99 O2 Delivery: Room Air - Course Nursing assessment & vital signs reviewed: Yes Ordered Tests: Medication Summary Generic Name Dose Route Start Last Admin Trade Name Freq PRN Reason Stop Dose Admin Prednisone 20 mg 12/26/18 21:58 Deltasone 20 Mg PO 12/26/18 21:59 STAT ONE Discontinued Medications Generic Name Dose Route Start Last Admin Trade Name Freq PRN Reason Stop Dose Admin Famotidine 40 mg 12/25/18 21:57 Pepcid 20 Mg PO 12/25/18 21:58 STAT ONE - Progress Progress: improved Counseled pt/family regarding: diagnosis, need for follow-up - Departure Departure Disposition: Home Clinical Impression: Allergic reaction Condition: Stable Critical Care Time: No Referrals: KAT CARMONA MD [Primary Care Provider] - Additional Instructions: continue over the counter benadryl every 8 hours for 4 days. return to ED if symptoms worsen Prescriptions: Prednisone 10 mg [Deltasone 10 mg] 10 mg PO TID #12 tablet Ranitidine HCl [Zantac] 150 mg PO BID 5 Days #10 tablet
[2018-12-25 22:09] VITALS: BP 116/59; PULSE 76; O2SAT 97
[2018-12-26] MEDS ORDERED: DELTASONE 20 MG PO ONE (21:58)
== END 2018-12-25 22:15 | disposition home or self-care (01) ==
LOC: ED 20:49
DX: H02.849 Edema of unspecified eye, unspecified eyelid (principal); T49.5X5A Adverse effect of ophthalmological drugs and preparations, initial encounter
CPT/HCPCS: 99283; A9270-GY

== ENCOUNTER 2020-05-08 00:03 | Observation (INO) | payer OTHER ==
--- NOTE | 2020-05-08 00:34 | ERPHSYRPT ---
- History of Present Illness Time Seen by Provider: 05/08/20 00:34 Historian: patient Exam Limitations: no limitations Physician History: This is a 20-year-old white female who is on a Depo-Provera shot and presents with periumbilical abdominal pain that was sudden onset approximately 3 to 4 hours prior to arrival to the emergency department. Patient did eat [employer] earlier in the day. No one else in the family had similar meal but no one else had abdominal pain complaints. She did have one episode of vomiting. She denies diarrhea. She has no chest pain she has no shortness of breath. Patient states that the pain was severe early on and has let up some but is still fairly significant. She is never had anything like this before. Patient has had no prior abdominal surgeries Timing/Duration: today Quality: sharpness, stabbing Abdominal Pain Onset Location: periumbilical Pain Radiation: no radiation Severity of Pain-Max: severe Severity of Pain-Current: moderate Modifying Factors: Improves With: vomiting Associated Symptoms: nausea, vomiting, No chest pain, No shortness of breath Previous symptoms: no prior history Allergies/Adverse Reactions: No Known Drug Allergies Allergy (Verified 05/08/20 00:51) Hx Tetanus, Diphtheria Vaccination/Date Given: Yes Hx Influenza Vaccination/Date Given: Yes Hx Pneumococcal Vaccination/Date Given: No Travel Risk - International Travel Have you traveled outside of the country in past 3 weeks: No - Coronavirus Screening Are you exhibiting any of the following symptoms?: No Close contact with a COVID-19 positive Pt in past 14-21 Days: No - Review of Systems Constitutional: No Symptoms Eyes: No Symptoms Ears, Nose, & Throat: No Symptoms Respiratory: No Symptoms Cardiac: No Symptoms Abdominal/Gastrointestinal: Abdominal Pain, Nausea, Vomiting, No Diarrhea, No Constipation Genitourinary Symptoms: No Symptoms Musculoskeletal: No Symptoms Skin: No Symptoms Neurological: No Symptoms Psychological: No Symptoms Endocrine: No Symptoms Hematologic/Lymphatic: No Symptoms Immunological/Allergic: No Symptoms All Other Systems: Reviewed and Negative - Past Medical History Pertinent Past Medical History: Yes Neurological History: No Pertinent History ENT History: No Pertinent History Cardiac History: No Pertinent History Respiratory History: No Pertinent History Endocrine Medical History: No Pertinent History Musculoskeletal History: No Pertinent History GI Medical History: No Pertinent History History: No Pertinent History Psycho-Social History: No Pertinent History Female Reproductive Disorders: No Pertinent History Other Medical History: environmental allergies - Past Surgical History Past Surgical History: No Neuro Surgical History: No Pertinent History Cardiac: No Pertinent History Respiratory: No Pertinent History Gastrointestinal: No Pertinent History Genitourinary: No Pertinent History Musculoskeletal: No Pertinent History Female Surgical History: No Pertinent History - Social History Smoking Status: Never smoker Exposure to second hand smoke: Yes Drug Use: none Patient Lives Alone: No - Nursing Vital Signs Nursing Vital Signs: Initial Vital Signs Temperature 97.7 F 05/08/20 00:48 Pulse Rate 106 H 05/08/20 00:48 Respiratory Rate 18 05/08/20 00:48 Blood Pressure 122/77 05/08/20 00:48 O2 Sat by Pulse Oximetry 98 05/08/20 00:48 Pain Scale Pain Intensity 3 - Physical Exam General Appearance: no apparent distress, alert, anxiety, thin Eye Exam: PERRL/EOMI, eyes nml inspection Ears, Nose, Throat Exam: normal ENT inspection, moist mucous membranes Neck Exam: normal inspection, non-tender, supple, full range of motion Respiratory Exam: normal breath sounds, lungs clear, airway intact, No chest tenderness, No respiratory distress Cardiovascular Exam: regular rate/rhythm, normal heart sounds, normal peripheral pulses Gastrointestinal/Abdomen Exam: soft, normal bowel sounds, tenderness (Periumbilical), guarding, No rebound, No hernia Pelvic Exam: not done Rectal Exam: not done Back Exam: normal inspection, normal range of motion, No CVA tenderness, No vertebral tenderness Extremity Exam: normal inspection, normal range of motion, pelvis stable Neurologic Exam: alert, oriented x 3, cooperative, patient access specialist II-XII nml as tested, normal mood/affect, nml cerebellar function, nml station & gait, sensation nml Skin Exam: normal color, warm, dry Lymphatic Exam: No adenopathy SpO2 Interpretation: normal O2 Delivery: Room Air - Course Nursing assessment & vital signs reviewed: Yes Ordered Tests: Active Orders 24 hr Category Date Time Status IV Insertion STAT Care 05/08/20 00:44 Active ABDOMEN AND PELVIS W/0 CONTRAS [CT] Stat Exams 05/08/20 00:44 Taken AMYLASE Stat Lab 05/08/20 01:00 Completed CBC W DIFF Stat Lab 05/08/20 01:00 Completed CMP Stat Lab 05/08/20 01:00 Completed HCG,QUALITATIVE URINE Stat Lab 05/08/20 00:48 Completed LIPASE Stat Lab 12/10/20 01:00 Completed Lactic Acid Stat Lab 05/08/20 01:20 Completed UA W/RFX UR CULTURE Stat Lab 05/08/20 00:48 Completed Transfer Order Routine Transfer 05/08/20 Ordered Medication Summary Discontinued Medications Generic Name Dose Route Start Last Admin Trade Name Freq PRN Reason Stop Dose Admin Hydromorphone HCl 0.5 mg 05/08/20 01:14 05/08/20 01:28 Hydromorphone 1 Mg/Ml Injection IV 05/08/20 01:15 0.5 mg STAT ONE Administration Hydromorphone HCl Confirm 05/08/20 01:23 Hydromorphone 1 Mg/Ml Injection Administered 05/08/20 01:24 Dose 1 mg .ROUTE .STK-MED ONE Sodium Chloride 1,000 mls @ 999 mls/hr 05/08/20 00:44 05/08/20 01:27 Sodium Chloride 0.9% 1000 Ml IV 05/08/20 01:44 999 mls/hr .Q1H1M STA Administration Sodium Chloride Confirm 05/08/20 01:23 Sodium Chloride 0.9% 1000 Ml Administered 05/08/20 01:24 Dose 1,000 mls @ ud .ROUTE .STK-MED ONE Sodium Chloride Confirm 05/08/20 02:45 Sodium Chloride 0.9% 1000 Ml Administered 05/08/20 02:46 Dose 1,000 mls @ ud .ROUTE .STK-MED ONE Sodium Chloride 1,000 mls @ 999 mls/hr 05/08/20 02:57 05/08/20 03:11 Sodium Chloride 0.9% 1000 Ml IV 05/08/20 03:57 999 mls/hr .Q1H1M STA Administration Sodium Chloride Confirm 05/08/20 02:59 Sodium Chloride 0.9% 1000 Ml Administered 05/08/20 03:00 Dose 1,000 mls @ ud .ROUTE .STK-MED ONE Ondansetron HCl 4 mg 05/08/20 00:44 05/08/20 01:28 Zofran 4 Mg/2 Ml Vial IV 05/08/20 00:45 4 mg STAT ONE Administration Ondansetron HCl Confirm 05/08/20 01:23 Zofran 4 Mg/2 Ml Vial Administered 05/08/20 01:24 Dose 4 mg .ROUTE .STK-MED ONE Ondansetron HCl Confirm 05/08/20 02:45 Zofran 4 Mg/2 Ml Vial Administered 05/08/20 02:46 Dose 4 mg .ROUTE .STK-MED ONE Ondansetron HCl 4 mg 05/08/20 02:56 05/08/20 03:10 Zofran 4 Mg/2 Ml Vial IV 05/08/20 02:57 4 mg STAT ONE Administration Ondansetron HCl Confirm 05/08/20 02:59 Zofran 4 Mg/2 Ml Vial Administered 05/08/20 03:00 Dose 4 mg .ROUTE .STK-MED ONE Lab/Rad Data: Laboratory Result Diagrams 05/08/20 01:00 05/08/20 01:00 Laboratory Results 05/08/20 05/08/20 05/08/20 Range/Units 01:20 01:00 01:00 WBC 14.3 H (4.0-10.5) K/mm3 RBC 4.18 (4.1-5.4) M/mm3 Hgb 11.6 L (12.0-16.0) gm/dl Hct 36.2 (35-47) % MCV 86.6 (78-100) fl MCH 27.8 (26-32) pg MCHC 32.0 (32-36) g/dl RDW 12.8 (11.5-14.0) % Plt Count 297 (150-450) K/mm3 MPV 11.3 H (7.5-11.0) fl Gran % 84.4 H (36.0-66.0) % Eos # (Auto) 0.19 (0-0.5) Absolute Lymphs (auto) 1.35 (1.0-4.6) Absolute Monos (auto) 0.69 (0.0-1.3) Lymphocytes % 9.4 L (24.0-44.0) % Monocytes % 4.8 (0.0-12.0) % Eosinophils % 1.3 (0.00-5.0) % Basophils % 0.1 (0.0-0.4) % Absolute Granulocytes 12.06 H (1.4-6.9) Basophils # 0.02 (0-0.4) Sodium 139 (137-145) mmol/L Potassium 3.4 L (3.5-5.1) mmol/L Chloride 105 (98-107) mmol/L Carbon Dioxide 25 (22-30) mmol/L Anion Gap 12.7 (5-15) MEQ/L BUN 10 (7-17) mg/dL Creatinine 0.59 (0.52-1.04) mg/dL Estimated GFR > 60.0 ML/MIN Glucose 108 H (74-106) mg/dL Lactic Acid 1.0 (0.4-2.0) Calcium 9.5 (8.4-10.2) mg/dL Total Bilirubin 0.40 (0.2-1.3) mg/dL AST 20 (14-36) U/L ALT 10 (0-35) U/L Alkaline Phosphatase 70 (38-126) U/L Serum Total Protein 7.5 (6.3-8.2) g/dL Albumin 4.5 (3.5-5.0) g/dL Amylase 45 (30-110) U/L Lipase 26 (23-300) U/L Urine Color (YELLOW) Urine Appearance (CLEAR) Urine pH (5-6) Ur Specific [place] (1.005-1.025) Urine Protein (Negative) Urine Ketones (NEGATIVE) Urine Blood (0-5) Red/ul Urine Nitrite (NEGATIVE) Urine Bilirubin (NEGATIVE) Urine Urobilinogen (0-1) mg/dL Ur Leukocyte Esterase (NEGATIVE) Urine WBC (Auto) (0-5) /HPF Urine RBC (Auto) (0-2) /HPF U Epithel Cells (Auto) (FEW) /HPF Urine Bacteria (Auto) (NEGATIVE) /HPF Urine Mucus (Auto) (NEGATIVE) /HPF Urine Culture Reflexed (NO) Urine Glucose (NEGATIVE) mg/dL Urine HCG, Qual (Negative) 05/08/20 05/08/20 Range/Units 00:48 00:48 WBC (4.0-10.5) K/mm3 RBC (4.1-5.4) M/mm3 Hgb (12.0-16.0) gm/dl Hct (35-47) % MCV (78-100) fl MCH (26-32) pg MCHC (32-36) g/dl RDW (11.5-14.0) % Plt Count (150-450) K/mm3 MPV (7.5-11.0) fl Gran % (36.0-66.0) % Eos # (Auto) (0-0.5) Absolute Lymphs (auto) (1.0-4.6) Absolute Monos (auto) (0.0-1.3) Lymphocytes % (24.0-44.0) % Monocytes % (0.0-12.0) % Eosinophils % (0.00-5.0) % Basophils % (0.0-0.4) % Absolute Granulocytes (1.4-6.9) Basophils # (0-0.4) Sodium (137-145) mmol/L Potassium (3.5-5.1) mmol/L Chloride (98-107) mmol/L Carbon Dioxide (22-30) mmol/L Anion Gap (5-15) MEQ/L BUN (7-17) mg/dL Creatinine (0.52-1.04) mg/dL Estimated GFR ML/MIN Glucose (74-106) mg/dL Lactic Acid (0.4-2.0) Calcium (8.4-10.2) mg/dL Total Bilirubin (0.2-1.3) mg/dL AST (14-36) U/L ALT (0-35) U/L Alkaline Phosphatase (38-126) U/L Serum Total Protein (6.3-8.2) g/dL Albumin (3.5-5.0) g/dL Amylase (30-110) U/L Lipase (23-300) U/L Urine Color YELLOW (YELLOW) Urine Appearance SLIGHTLY CLOUDY (CLEAR) Urine pH 5.0 (5-6) Ur Specific [place] 1.020 (1.005-1.025) Urine Protein NEGATIVE (Negative) Urine Ketones SMALL (NEGATIVE) Urine Blood MODERATE (0-5) Red/ul Urine Nitrite NEGATIVE (NEGATIVE) Urine Bilirubin NEGATIVE (NEGATIVE) Urine Urobilinogen NEGATIVE (0-1) mg/dL Ur Leukocyte Esterase NEGATIVE (NEGATIVE) Urine WBC (Auto) NONE (0-5) /HPF Urine RBC (Auto) 3-5 (0-2) /HPF U Epithel Cells (Auto) RARE (FEW) /HPF Urine Bacteria (Auto) NONE (NEGATIVE) /HPF Urine Mucus (Auto) SLIGHT (NEGATIVE) /HPF Urine Culture Reflexed NO (NO) Urine Glucose NEGATIVE (NEGATIVE) mg/dL Urine HCG, Qual NEGATIVE (Negative) - Progress Progress: improved, pain not gone completely, re-examined Progress Note: 05/08/20 04:42 CAT scan of the abdomen and pelvis without contrast shows that the appendix is distended with fluid filled. There is no perforation there is no periappendiceal mass. The radiologist, Dr. Perez, [facility] called and spoke with me about this CAT scan he thinks that it is likely early appendicitis he did call an equivocal though on the impression portion of the report. I called Dr. Robins, the general surgeon mental health consultant. I reviewed the patient's history, condition, physical findings, laboratory results and the impression of the CAT scan of the abdomen and pelvis. He recommends placement in observation and Dr. Slim Deshpande, who will be rounding here at [facility] this morning will evaluate her for possible surgical intervention and appendectomy. Discussed with : Wesly Counseled pt/family regarding: lab results, diagnosis, rad results - Departure Departure Disposition: Observation Clinical Impression: Appendicitis, acute Condition: Stable Critical Care Time: No Referrals: KAT CARMONA MD [Primary Care Provider] -
[2020-05-08] MEDS ORDERED: Zofran 4 MG/2 ML VIAL IV ONE ×3 (00:44→05:15)
[2020-05-08] MEDS ORDERED: Sodium Chloride 0.9% 1000 ML 1,000 ML IV STA ×2 (00:44→02:57)
[2020-05-08] MEDS ORDERED: Hydromorphone 1 mg/ml Injection IV ONE (01:14)
[2020-05-08 01:18] LABS: Absolute Neutrophil Ct (ANC) 12.06 (1.4-6.9); BASOPHIL % 0.1 % (0.0-0.4); Basophil (Absolute #) 0.02 (0-0.4); Eosinophil % 1.3 % (0.00-5.0); Eosinophil (Absolute #) 0.19 (0-0.5); Hematocrit 36.2 % (35-47); Hemoglobin 11.6 gm/dl (12.0-16.0); Lymphocyte (Absolute #) 1.35 (1.0-4.6); Lymphocytes % 9.4 % (24.0-44.0); Mean Cell Volume 86.6 fl (78-100); Mean Corpuscular Hemoglobin 27.8 pg (26-32); Mean Platelet Volume 11.3 fl (7.5-11.0); Monocyte (Absolute #) 0.69 (0.0-1.3); Monocytes % 4.8 % (0.0-12.0); Neutrophil % 84.4 % (36.0-66.0); Platelet Count 297 K/mm3 (150-450); Red Blood Count 4.18 M/mm3 (4.1-5.4); Red Cell Distribution Width 12.8 % (11.5-14.0); White Blood Count 14.3 K/mm3 (4.0-10.5)
[2020-05-08 01:23] LABS: ALBUMIN 4.5 g/dL (3.5-5.0); ALKALINE PHOSPHATASE 70 U/L (38-126); AMYLASE 45 U/L (30-110); ANION GAP 12.7 MEQ/L (5-15); BLOOD UREA NITROGEN 10 mg/dL (7-17); CHLORIDE 105 mmol/L (98-107); Calcium 9.5 mg/dL (8.4-10.2); Carbon Dioxide 25 mmol/L (22-30); Creatinine 1 0.59 mg/dL (0.52-1.04); EST GLOMERULAR FILTRATION RATE > 60.0 ML/MIN; Glucose 108 mg/dL (74-106); LIPASE 26 U/L (23-300); Potassium 3.4 mmol/L (3.5-5.1); SGOT/AST 20 U/L (14-36); SGPT/ALT 10 U/L (0-35); SODIUM 139 mmol/L (137-145); Total Protein 7.5 g/dL (6.3-8.2)
[2020-05-08] MEDS ORDERED: Zofran 4 MG/2 ML VIAL ONE ×4 (01:23→09:04)
[2020-05-08] MEDS ORDERED: Hydromorphone 1 mg/ml Injection ONE (01:23)
[2020-05-08] MEDS ORDERED: Sodium Chloride 0.9% 1000 ML 1,000 ML ONE ×3 (01:23→02:59)
[2020-05-08 01:36] LABS: Appearance SLIGHTLY CLOUDY (CLEAR); Bilirubin NEGATIVE (NEGATIVE); Blood MODERATE Ery/ul (0-5); Epithelial Cells RARE /HPF (FEW); Glucose NEGATIVE (NEGATIVE); Ketones SMALL (NEGATIVE); Leukocyte Esterase NEGATIVE (NEGATIVE); Mucus SLIGHT /HPF (NEGATIVE); Nitrite NEGATIVE (NEGATIVE); Protein,Urine Dip NEGATIVE (Negative); Urobilinogen NEGATIVE mg/dL (0-1)
[2020-05-08] MEDS ORDERED: Zosyn 3.375 GM Vial IV ONE (04:52)
[2020-05-08] MEDS ORDERED: Sodium Chloride 100ML MINI-BAG PLUS 100 ML IV ONE (04:52)
[2020-05-08] MEDS ORDERED: Zosyn 3.375 GM Vial 3.375 GM in Sodium Chloride 100ML MINI-BAG PLUS 100 ML IV ONE (04:53)
[2020-05-08] MEDS ORDERED: Phenergan 25 MG INJ IM ONE (05:40)
[2020-05-08] MEDS ORDERED: Phenergan 25 MG INJ ONE (05:40)
[2020-05-08] MEDS ORDERED: Sodium Chloride 0.9% 1000 ML 1,000 ML IV SCH (06:20)
[2020-05-08] MEDS ORDERED: Zofran 4 MG/2 ML VIAL IV PRN (06:20)
[2020-05-08] MEDS ORDERED: FEVERALL 650 MG PR PRN (06:20)
[2020-05-08] MEDS ORDERED: Hydromorphone 1 mg/ml Injection IV PRN (06:20)
[2020-05-08] MEDS ORDERED: Lactated Ringers 1,000 ML IV SCH ×2 (07:30→08:30)
[2020-05-08] MEDS ORDERED: Lactated Ringers 1,000 ML IV ONE ×2 (08:19→10:59)
[2020-05-08] MEDS ORDERED: Sensorcaine 0.25% 10 ML ONE (08:19)
[2020-05-08] MEDS ORDERED: MEFOXIN 2 GM PREMIX** 2 GM/50 ML ML IV SCH (09:00)
[2020-05-08] MEDS ORDERED: Zemuron 100 MG/10 ML ONE (09:04)
[2020-05-08] MEDS ORDERED: Decadron 4 MG INJ ONE (09:04)
[2020-05-08] MEDS ORDERED: TORAdol 30 mg Injection ONE (09:04)
[2020-05-08] MEDS ORDERED: Xylocaine-Mpf 2% 5 Ml Vial ONE (09:04)
[2020-05-08] MEDS ORDERED: BRIDION 200MG/2ML IV ONE (09:04)
[2020-05-08] MEDS ORDERED: SUBLIMAZE 100 MCG/2 ML ONE ×2 (09:04→10:51)
[2020-05-08] MEDS ORDERED: DIPRIVAN 200 MG/20 ML IV ONE (09:04)
[2020-05-08] MEDS ORDERED: Versed 2 MG/2 ML Injection ONE (09:05)
--- NOTE | 2020-05-08 09:23 | XRAY ---
Indication: Right lower quadrant pain. Elevated WBC. Multiple contiguous axial images obtained through the abdomen and pelvis without contrast as ordered. Comparison: None Lung bases are clear. Heart is not enlarged. Noncontrasted stomach and bowel loops appear nonobstructed. Appendix prominent up to 9 mm diameter concerning for acute appendicitis. No free fluid/air. 3.8 cm right ovary cyst. Remaining liver, gallbladder, pancreas, spleen, adrenal glands, kidneys, ureters, bladder, uterus, and aorta appear unremarkable for noncontrast exam. Osseous structures intact. No ventral or inguinal hernias. Impression: 1. Prominent appendix concerning for appendicitis. 2. 3.8 cm right ovary cyst. Pelvic sonogram may yield further information if clinically warranted. Comment: Preliminary interpretation was made by [facility]. No critical discrepancy.
[2020-05-08] MEDS: MORPHINE SULFATE 2 MG INJ IV PRN ×2 (12:35→15:55)
--- NOTE | 2020-05-08 15:31 | OP ---
DATE OF SURGERY: 05/08/2020 0945 ADMISSION DIAGNOSIS: Early appendicitis. POSTOPERATIVE DIAGNOSIS: Early appendicitis. PROCEDURE: Laparoscopic appendectomy. SURGEON: Slim Deshpande M.D. ANESTHESIA: General. DESCRIPTION OF PROCEDURE: The patient was taken to surgery. Umbilicus very specifically dissected and raised up. Veress needle inserted, double pop insufflated. Insufflating pressure 14. Two - 5's laterally. All three ports were anesthetized with 0.25% Marcaine. Good visualization. About 2 ounces of clear fluid was up and down the right gutter and suctioned. 70-80% of the appendix was inflamed. The base was satisfactory. It was able to be taken with single cartridge taking almost one wisp of cecum with it. The suture line was dry. The fluid had been suctioned. There was absolutely nothing in the abdomen. Hole closure device was used at the 12 umbilical port. This was inspected and was dry. The two lateral ports were dry. The two lateral ports removed. Skin closed with 4-0 Vicryl, Steri-Strips. The mother was called and a message was left on her phone.
--- NOTE | 2020-05-08 15:35 | HP ---
HISTORY OF PRESENT ILLNESS: The patient came in during the night. Dr. Robins was stone banker. The report from the CT scan was early appendicitis. He was given pain medication, IV antibiotics. We noted this on the rounds at 0630 hours this morning. She was scheduled for 0930 hours for laparoscopic appendectomy. She was seen and examined in the holding area and her history is about 24 hours. It came up fairly suddenly. Her pain and discomfort is fairly light. Her exam is consistent with some mild peritoneal irritation right lower quadrant. White count slightly elevated. CT scan noted. IMPRESSION: Acute appendicitis.
[2020-05-08 16:56] VITALS: BP 100/55; PULSE 70; O2SAT 96
== END 2020-05-08 17:12 | disposition home or self-care (01) ==
LOC: ED 00:03 → MED SURG 06:18
PROVIDERS: ADMIT Surgery; ATTEND Surgery
DX: K35.80 Unspecified acute appendicitis (principal)
CPT/HCPCS: 36000; 36415; 44970; 74176; 80053; 81001; 82150; 83605; 83690; 84703; 85025; 94762; 96360; 96361; 96365; 96372; 96374; 96375; 96376; 99285; G0378; 88304; J0694; J1100; J1170; J1885; J2250; J2270; J2405; J2550; J2704; J3010

== ENCOUNTER 2021-03-15 20:19 | Emergency (ER) | payer OTHER ==
[2021-03-15] MEDS ORDERED: Sodium Chloride 0.9% 1000 ML 1,000 ML IV STA (20:40)
[2021-03-15] MEDS ORDERED: Sodium Chloride 0.9% 1000 ML 1,000 ML ONE (21:03)
[2021-03-15 21:09] LABS: Absolute Neutrophil Ct (ANC) 5.48 (1.4-6.9); BASOPHIL % 0.2 % (0.0-0.4); Basophil (Absolute #) 0.02 (0-0.4); Eosinophil % 3.6 % (0.00-5.0); Hematocrit 38.7 % (35-47); Hemoglobin 12.5 gm/dl (12.0-16.0); Lymphocytes % 22.8 % (24.0-44.0); Mean Corpuscular Hemoglobin 28.1 pg (26-32); Mean Corpuscular Hgb Concent. 32.3 g/dl (32-36); Mean Platelet Volume 10.7 fl (7.5-11.0); Monocyte (Absolute #) 0.62 (0.0-1.3); Monocytes % 7.5 % (0.0-12.0); Neutrophil % 65.9 % (36.0-66.0); Platelet Count 356 K/mm3 (150-450); Red Blood Count 4.45 M/mm3 (4.1-5.4); White Blood Count 8.3 K/mm3 (4.0-10.5)
[2021-03-15 21:09] LABS: Appearance SLIGHTLY CLOUDY (CLEAR); Bacteria NONE SEEN /HPF (NEGATIVE); Bilirubin NEGATIVE (NEGATIVE); Blood MODERATE Ery/ul (0-5); Epithelial Cells FEW /HPF (FEW); Glucose NEGATIVE (NEGATIVE); Ketones NEGATIVE (NEGATIVE); Leukocyte Esterase NEGATIVE (NEGATIVE); Nitrite NEGATIVE (NEGATIVE); Protein,Urine Dip NEGATIVE (Negative); RBC 0-2 /HPF (0-2); Specific Gravity 1.005 (1.005-1.025); Urobilinogen NEGATIVE mg/dL (0-1)
--- NOTE | 2021-03-15 21:15 | ERPHSYRPT ---
- History of Present Illness Time Seen by Provider: 03/15/21 20:40 Historian: patient Exam Limitations: no limitations Patient Subjective Stated Complaint: pt states "I have had left stomach pain today." Triage Nursing Assessment: pt ambulated into the er; pt is axo x4; c/o left abd pain; pt states 7/10 pain; pt also c/o headache, shakiness, nausea; pt states that she had chest pain last night; abd is flat, soft; active bowel sounds in all quads; pt denies vomiting and diarrhea; pt c/o left ear pain; left ear middle ear is red; pupils 3 mm and PERRL; clear lung sounds in all lobes; vitals wnl Physician History: Patient is a 20-year-old white female who presents with intermittent pain in the left ear which started today she has had no sore throat or cough she does complain of some headache. She also complains of chest pain on and off she had a [facility] which [facility] but she feels for certain that something is going on. She also complains of left upper quadrant pain intermittently. She has had some nausea but no vomiting diarrhea no fever chills sweats no change in urination and her only previous surgery was an appendix. Timing/Duration: day(s) Activities at Onset: none Quality: cramping Abdominal Pain Onset Location: LUQ, generalized abdomen, flank Pain Radiation: no radiation Severity of Pain-Max: moderate Severity of Pain-Current: moderate Modifying Factors: Improves With: nothing Associated Symptoms: chest pain Previous symptoms: same symptoms as today Allergies/Adverse Reactions: No Known Drug Allergies Allergy (Verified 03/15/21 20:35) Home Medications: Medroxyprogesterone Acet [Depo-Provera] 150 mg IM UD 05/08/20 [History] Hx Tetanus, Diphtheria Vaccination/Date Given: Yes Hx Influenza Vaccination/Date Given: No Hx Pneumococcal Vaccination/Date Given: No Travel Risk - International Travel Have you traveled outside of the country in past 3 weeks: No - Coronavirus Screening Are you exhibiting any of the following symptoms?: No Close contact with a COVID-19 positive Pt in past 14-21 Days: No - Vaccine Status Have you recieved a Covid-19 vaccination: No - Review of Systems Constitutional: No Fever, No Chills Eyes: No Symptoms Ears, Nose, & Throat: Ear Pain Respiratory: No Cough, No Dyspnea Cardiac: Chest Pain, No Edema, No Syncope Abdominal/Gastrointestinal: Abdominal Pain, No Nausea, No Vomiting, No Diarrhea Genitourinary Symptoms: No Dysuria Musculoskeletal: No Back Pain, No Neck Pain Skin: No Rash Neurological: No Dizziness, No Focal Weakness, No Sensory Changes Psychological: No Symptoms Endocrine: No Symptoms All Other Systems: Reviewed and Negative - Past Medical History Pertinent Past Medical History: Yes Neurological History: No Pertinent History ENT History: No Pertinent History Cardiac History: No Pertinent History Respiratory History: No Pertinent History Endocrine Medical History: No Pertinent History Musculoskeletal History: No Pertinent History GI Medical History: No Pertinent History History: No Pertinent History Psycho-Social History: No Pertinent History Female Reproductive Disorders: No Pertinent History Other Medical History: environmental allergies - Past Surgical History Past Surgical History: No Neuro Surgical History: No Pertinent History Cardiac: No Pertinent History Respiratory: No Pertinent History Gastrointestinal: Appendectomy Genitourinary: No Pertinent History Musculoskeletal: No Pertinent History Female Surgical History: No Pertinent History - Social History Smoking Status: Former smoker Exposure to second hand smoke: No Drug Use: none Patient Lives Alone: No - Female History Hx Now: No - Nursing Vital Signs Nursing Vital Signs: Initial Vital Signs Temperature 98.9 F 03/15/21 20:36 Pulse Rate 94 H 03/15/21 20:36 Blood Pressure 146/99 03/15/21 20:36 O2 Sat by Pulse Oximetry 100 03/15/21 20:36 Pain Scale Pain Intensity 7 - Physical Exam General Appearance: mild distress, alert Eye Exam: PERRL/EOMI, eyes nml inspection Ears, Nose, Throat Exam: normal ENT inspection, pharynx normal, moist mucous membranes Neck Exam: normal inspection, non-tender, supple, full range of motion Respiratory Exam: normal breath sounds, lungs clear, No respiratory distress Cardiovascular Exam: regular rate/rhythm, normal heart sounds Gastrointestinal/Abdomen Exam: soft, No tenderness, No mass Back Exam: normal inspection, normal range of motion, No CVA tenderness, No vertebral tenderness Extremity Exam: normal inspection, normal range of motion, pelvis stable Neurologic Exam: alert, oriented x 3, cooperative, normal mood/affect, nml cerebellar function, sensation nml, No motor deficits Skin Exam: normal color, warm, dry SpO2: 100 - Course Nursing assessment & vital signs reviewed: Yes EKG Interpreted by Me: RATE (84), Sinus Rhythm, NORMAL AXIS, NORMAL INTERVALS, NORMAL QRS, NORMAL ST-T - Radiology Exams Chest X-ray Interpretation: Interpreted by me, No Pneumonia, No Pneumothorax, Nml Heart Size, No Infiltrates Abdomen X-ray Interpretation: Interpreted by me, Negative Ordered Tests: Active Orders 24 hr Category Date Time Status EKG-ER Only STAT Care 03/15/21 20:40 Active IV Insertion STAT Care 03/15/21 20:40 Active OBSTR/ACUTE ABDOMEN SERIES Stat Exams 03/15/21 20:41 Taken AMYLASE Stat Lab 03/15/21 20:56 Completed CBC W DIFF Stat Lab 03/15/21 20:56 Completed CMP Stat Lab 03/15/21 20:56 Completed HCG,QUALITATIVE URINE Stat Lab 03/15/21 20:56 Completed LIPASE Stat Lab 03/15/21 20:56 Completed Lactic Acid Stat Lab 03/15/21 20:55 Completed TROPONIN Q3H Lab 03/15/21 20:56 Completed TROPONIN Q3H Lab 03/15/21 23:45 Ordered TROPONIN Q3H Lab 03/16/21 02:45 Ordered TROPONIN Q3H Lab 03/16/21 05:45 Ordered TROPONIN Q3H Lab 03/16/21 08:45 Ordered UA W/RFX UR CULTURE Stat Lab 03/15/21 20:49 Completed Medication Summary Discontinued Medications Generic Name Dose Route Start Last Admin Trade Name Freq PRN Reason Stop Dose Admin Sodium Chloride 1,000 mls @ 999 mls/hr 03/15/21 20:40 03/15/21 22:15 Sodium Chloride 0.9% 1000 Ml IV 03/15/21 21:40 Infused .Q1H1M STA Infusion Sodium Chloride Confirm 03/15/21 21:03 Sodium Chloride 0.9% 1000 Ml Administered 03/15/21 21:04 Dose 1,000 mls @ ud .ROUTE .STK-MED ONE Lab/Rad Data: Laboratory Result Diagrams 03/15/21 20:56 03/15/21 20:56 Laboratory Results 03/15/21 03/15/21 03/15/21 Range/Units 20:56 20:56 20:56 WBC 8.3 (4.0-10.5) K/mm3 RBC 4.45 (4.1-5.4) M/mm3 Hgb 12.5 (12.0-16.0) gm/dl Hct 38.7 (35-47) % MCV 87.0 (78-100) fl MCH 28.1 (26-32) pg MCHC 32.3 (32-36) g/dl RDW 13.0 (11.5-14.0) % Plt Count 356 (150-450) K/mm3 MPV 10.7 (7.5-11.0) fl Gran % 65.9 (36.0-66.0) % Eos # (Auto) 0.30 (0-0.5) Absolute Lymphs (auto) 1.90 (1.0-4.6) Absolute Monos (auto) 0.62 (0.0-1.3) Lymphocytes % 22.8 L (24.0-44.0) % Monocytes % 7.5 (0.0-12.0) % Eosinophils % 3.6 (0.00-5.0) % Basophils % 0.2 (0.0-0.4) % Absolute Granulocytes 5.48 (1.4-6.9) Basophils # 0.02 (0-0.4) Sodium 143 (137-145) mmol/L Potassium 3.5 (3.5-5.1) mmol/L Chloride 104 (98-107) mmol/L Carbon Dioxide 25 (22-30) mmol/L Anion Gap 16.6 H (5-15) MEQ/L BUN 10 (7-17) mg/dL Creatinine 0.80 (0.52-1.04) mg/dL Estimated GFR > 60.0 ML/MIN Glucose 87 (74-106) mg/dL Lactic Acid (0.4-2.0) Calcium 9.3 (8.4-10.2) mg/dL Total Bilirubin 0.40 (0.2-1.3) mg/dL AST 19 (14-36) U/L ALT 9 (0-35) U/L Alkaline Phosphatase 78 (38-126) U/L Troponin I < 0.012 (0.000-0.034) ng/mL Serum Total Protein 8.2 (6.3-8.2) g/dL Albumin 5.1 H (3.5-5.0) g/dL Amylase 65 (30-110) U/L Lipase 55 (23-300) U/L Urine Color (YELLOW) Urine Appearance (CLEAR) Urine pH (5-6) Ur Specific [place] (1.005-1.025) Urine Protein (Negative) Urine Ketones (NEGATIVE) Urine Blood (0-5) Red/ul Urine Nitrite (NEGATIVE) Urine Bilirubin (NEGATIVE) Urine Urobilinogen (0-1) mg/dL Ur Leukocyte Esterase (NEGATIVE) Urine WBC (Auto) (0-5) /HPF Urine RBC (Auto) (0-2) /HPF U Epithel Cells (Auto) (FEW) /HPF Urine Bacteria (Auto) (NEGATIVE) /HPF Urine Culture Reflexed (NO) Urine Glucose (NEGATIVE) mg/dL Urine HCG, Qual (Negative) 03/15/21 03/15/21 03/15/21 Range/Units 20:56 20:55 20:49 WBC (4.0-10.5) K/mm3 RBC (4.1-5.4) M/mm3 Hgb (12.0-16.0) gm/dl Hct (35-47) % MCV (78-100) fl MCH (26-32) pg MCHC (32-36) g/dl RDW (11.5-14.0) % Plt Count (150-450) K/mm3 MPV (7.5-11.0) fl Gran % (36.0-66.0) % Eos # (Auto) (0-0.5) Absolute Lymphs (auto) (1.0-4.6) Absolute Monos (auto) (0.0-1.3) Lymphocytes % (24.0-44.0) % Monocytes % (0.0-12.0) % Eosinophils % (0.00-5.0) % Basophils % (0.0-0.4) % Absolute Granulocytes (1.4-6.9) Basophils # (0-0.4) Sodium (137-145) mmol/L Potassium (3.5-5.1) mmol/L Chloride (98-107) mmol/L Carbon Dioxide (22-30) mmol/L Anion Gap (5-15) MEQ/L BUN (7-17) mg/dL Creatinine (0.52-1.04) mg/dL Estimated GFR ML/MIN Glucose (74-106) mg/dL Lactic Acid 1.1 (0.4-2.0) Calcium (8.4-10.2) mg/dL Total Bilirubin (0.2-1.3) mg/dL AST (14-36) U/L ALT (0-35) U/L Alkaline Phosphatase (38-126) U/L Troponin I (0.000-0.034) ng/mL Serum Total Protein (6.3-8.2) g/dL Albumin (3.5-5.0) g/dL Amylase (30-110) U/L Lipase (23-300) U/L Urine Color YELLOW (YELLOW) Urine Appearance SLIGHTLY CLOUDY (CLEAR) Urine pH 6.0 (5-6) Ur Specific [place] 1.005 (1.005-1.025) Urine Protein NEGATIVE (Negative) Urine Ketones NEGATIVE (NEGATIVE) Urine Blood MODERATE (0-5) Red/ul Urine Nitrite NEGATIVE (NEGATIVE) Urine Bilirubin NEGATIVE (NEGATIVE) Urine Urobilinogen NEGATIVE (0-1) mg/dL Ur Leukocyte Esterase NEGATIVE (NEGATIVE) Urine WBC (Auto) 3-5 (0-5) /HPF Urine RBC (Auto) 0-2 (0-2) /HPF U Epithel Cells (Auto) FEW (FEW) /HPF Urine Bacteria (Auto) NONE SEEN (NEGATIVE) /HPF Urine Culture Reflexed NO (NO) Urine Glucose NEGATIVE (NEGATIVE) mg/dL Urine HCG, Qual NEGATIVE (Negative) - Progress Progress: unchanged - Departure Departure Disposition: Home Clinical Impression: Left ear pain, Abdominal pain Condition: Stable Critical Care Time: No Referrals: KAT CARMONA MD [Primary Care Provider] - Instructions: Acute Abdomen (Belly Pain) Prescriptions: Amoxicillin 500 mg PO TID 10 Days #30 tablet
[2021-03-15 21:23] LABS: ALBUMIN 5.1 g/dL (3.5-5.0); ALKALINE PHOSPHATASE 78 U/L (38-126); AMYLASE 65 U/L (30-110); ANION GAP 16.6 MEQ/L (5-15); BLOOD UREA NITROGEN 10 mg/dL (7-17); CHLORIDE 104 mmol/L (98-107); Calcium 9.3 mg/dL (8.4-10.2); Carbon Dioxide 25 mmol/L (22-30); EST GLOMERULAR FILTRATION RATE > 60.0 ML/MIN; Glucose 87 mg/dL (74-106); LIPASE 55 U/L (23-300); Potassium 3.5 mmol/L (3.5-5.1); SGOT/AST 19 U/L (14-36); SGPT/ALT 9 U/L (0-35); SODIUM 143 mmol/L (137-145); Total Protein 8.2 g/dL (6.3-8.2)
[2021-03-15 23:00] VITALS: BP 114/84; PULSE 87; O2SAT 97
--- NOTE | 2021-03-16 08:53 | XRAY ---
Indication: Pain and cough. Comparison: Chest exam February 13, 2021. 2 view abdomen nonacute and nonobstructed. Solid organs unremarkable. Osseous structures intact with mild levorotoscoliosis centered at L4. Single frontal chest again demonstrates normal heart, lungs, and bony thorax. Impression: Negative abdomen. Continued normal 1 view chest.
== END 2021-03-15 23:05 | disposition home or self-care (01) ==
LOC: ED 20:19
DX: H92.02 Otalgia, left ear (principal); R10.9 Unspecified abdominal pain
CPT/HCPCS: 36000; 36415; 74022; 80053; 81001; 82150; 83605; 83690; 84484; 84703; 85025; 93005; 99284

== ENCOUNTER 2021-09-19 22:26 | Emergency (ER) | payer OTHER ==
[2021-09-19] MEDS ORDERED: Sodium Chloride 0.9% 1000 ML 1,000 ML IV STA (22:54)
[2021-09-19] MEDS ORDERED: Ativan 1 MG PO ONE (22:55)
[2021-09-19] MEDS ORDERED: Ativan 1 MG ONE (22:57)
[2021-09-19] MEDS ORDERED: Sodium Chloride 0.9% 1000 ML 1,000 ML ONE (22:57)
[2021-09-19] MEDS ORDERED: Zofran 4 MG/2 ML VIAL IV ONE (23:05)
[2021-09-19] MEDS ORDERED: Zofran 4 MG/2 ML VIAL ONE (23:06)
[2021-09-19 23:22] LABS: Absolute Neutrophil Ct (ANC) 3.76 (1.4-6.9); Basophil (Absolute #) 0.03 (0-0.4); Eosinophil % 8.8 % (0.00-5.0); Eosinophil (Absolute #) 0.61 (0-0.5); Hematocrit 36.8 % (35-47); Hemoglobin 12.1 gm/dl (12.0-16.0); Lymphocyte (Absolute #) 2.03 (1.0-4.6); Lymphocytes % 29.3 % (24.0-44.0); Mean Corpuscular Hemoglobin 28.6 pg (26-32); Mean Corpuscular Hgb Concent. 32.9 g/dl (32-36); Mean Platelet Volume 10.4 fl (7.5-11.0); Monocyte (Absolute #) 0.49 (0.0-1.3); Monocytes % 7.1 % (0.0-12.0); Neutrophil % 54.4 % (36.0-66.0); Platelet Count 347 K/mm3 (150-450); Red Blood Count 4.23 M/mm3 (4.1-5.4); Red Cell Distribution Width 12.9 % (11.5-14.0); White Blood Count 6.9 K/mm3 (4.0-10.5)
[2021-09-19 23:31] LABS: ALBUMIN 4.4 g/dL (3.5-5.0); ALKALINE PHOSPHATASE 71 U/L (38-126); ANION GAP 14.3 MEQ/L (5-15); BLOOD UREA NITROGEN 8 mg/dL (7-17); CHLORIDE 106 mmol/L (98-107); Calcium 9.1 mg/dL (8.4-10.2); Carbon Dioxide 25 mmol/L (22-30); Creatinine 1 0.63 mg/dL (0.52-1.04); EST GLOMERULAR FILTRATION RATE > 60.0 ML/MIN; Glucose 106 mg/dL (74-106); LIPASE 59 U/L (23-300); MAGNESIUM 2.1 mg/dL (1.6-2.3); Potassium 3.6 mmol/L (3.5-5.1); SGOT/AST 23 U/L (14-36); SGPT/ALT 13 U/L (0-35); SODIUM 142 mmol/L (137-145); Total Protein 7.2 g/dL (6.3-8.2)
[2021-09-20] MEDS ORDERED: TORAdol 30 mg Injection IV ONE (00:05)
--- NOTE | 2021-09-20 00:14 | ERPHSYRPT ---
- History of Present Illness Time Seen by Provider: 09/19/21 22:28 Source: patient Exam Limitations: no limitations Patient Subjective Stated Complaint: pt states she started taking welbutrin xl 150 mg yesterday. has been feeling unwell since. states she doesnt feel like h erself and has been crying and has felt off balance since. vomited after her second dose today. Triage Nursing Assessment: pt alert and oriented, answers questions approp. pt ambulatory with steady gait noted. skin pink warm and dry. respirations nonlabored. pupils equal and reactive. bilat upper and lower ext strength wnl. Physician History: 21 years old female with history of anxiety taking fluoxetine until last week when it was abruptly stopped and was started on Wellbutrin 150 mg since yesterday and has been feeling weak fatigued tired, not acting herself, having more mood swings with crying all day today without any suicidal or homicidal ideations. Denies any ideas of hopelessness/helplessness. She also had nausea and some epigastric discomfort but no vomiting. Denies any chest pain palpitations or shortness of breath. Minimal headache. Timing/Duration: yesterday, constant, gradual onset, worse Severity: moderate Modifying Factors: Improves With: other Associated Symptoms: nausea, abdominal pain, headaches, loss of appetite, malaise, weakness, No shortness of breath, No cough, No chest pain, No syncope Allergies/Adverse Reactions: No Known Drug Allergies Allergy (Verified 09/19/21 22:50) Home Medications: Medroxyprogesterone Acetate [Depo-Provera] 150 mg IM UD 05/08/20 [History] Bupropion HCl Xl 150 mg [Wellbutrin XL 150 MG] 150 mg PO DAILY 09/19/21 [History] Hx Tetanus, Diphtheria Vaccination/Date Given: Yes Hx Influenza Vaccination/Date Given: No Hx Pneumococcal Vaccination/Date Given: No Immunizations Up to Date: Yes Travel Risk - International Travel Have you traveled outside of the country in past 3 weeks: No - Coronavirus Screening Are you exhibiting any of the following symptoms?: No Close contact with a COVID-19 positive Pt in past 14-21 Days: No - Vaccine Status Have you recieved a Covid-19 vaccination: No - Review of Systems Constitutional: Fatigue Eyes: No Symptoms Ears, Nose, & Throat: No Symptoms Respiratory: No Symptoms Cardiac: No Symptoms Abdominal/Gastrointestinal: Abdominal Pain, Nausea Genitourinary Symptoms: No Symptoms Musculoskeletal: No Symptoms Skin: No Symptoms Neurological: Headache Psychological: Anxiety, No Suicidal Ideations, No Homicidal Ideations Endocrine: No Symptoms Hematologic/Lymphatic: No Symptoms Immunological/Allergic: No Symptoms - Past Medical History Pertinent Past Medical History: Yes Neurological History: No Pertinent History ENT History: No Pertinent History Cardiac History: No Pertinent History Respiratory History: No Pertinent History Endocrine Medical History: No Pertinent History Musculoskeletal History: No Pertinent History GI Medical History: No Pertinent History History: No Pertinent History Psycho-Social History: Anxiety, Depression Female Reproductive Disorders: No Pertinent History Other Medical History: environmental allergies - Past Surgical History Past Surgical History: No Neuro Surgical History: No Pertinent History Cardiac: No Pertinent History Respiratory: No Pertinent History Gastrointestinal: Appendectomy Genitourinary: No Pertinent History Musculoskeletal: No Pertinent History Female Surgical History: No Pertinent History - Social History Smoking Status: Former smoker Exposure to second hand smoke: Yes Drug Use: none Patient Lives Alone: No - Female History Hx Last Menstrual Period: depo shot Hx Now: No - Nursing Vital Signs Nursing Vital Signs: Initial Vital Signs Temperature 98.1 F 09/19/21 22:37 Pulse Rate 95 H 09/19/21 22:37 Respiratory Rate 16 09/19/21 22:37 Blood Pressure 118/73 09/19/21 22:37 O2 Sat by Pulse Oximetry 99 09/19/21 22:37 Pain Scale Pain Intensity 0 - Physical Exam General Appearance: no apparent distress, alert, anxiety Eye Exam: PERRL/EOMI, eyes nml inspection Ears, Nose, Throat Exam: normal ENT inspection, TMs normal, pharynx normal, moist mucous membranes Neck Exam: normal inspection, non-tender, supple, full range of motion Respiratory Exam: normal breath sounds, lungs clear Cardiovascular Exam: regular rate/rhythm, normal heart sounds Gastrointestinal/Abdomen Exam: soft, normal bowel sounds, No tenderness Back Exam: normal inspection, normal range of motion Extremity Exam: normal inspection, normal range of motion, pelvis stable Neurologic Exam: alert, oriented x 3, cooperative, prosthetic assistant II-XII nml as tested, nml cerebellar function, nml station & gait, sensation nml, No normal mood/affect, No motor deficits Skin Exam: normal color SpO2 Interpretation: normal SpO2: 100 O2 Delivery: Room Air Ordered Tests: Active Orders 24 hr Category Date Time Status IV Insertion STAT Care 09/19/21 22:54 Active CBC W DIFF Stat Lab 09/19/21 23:16 Completed CMP Stat Lab 09/19/21 23:16 Completed HCG,QUALITATIVE URINE Stat Lab 09/19/21 23:57 Completed LIPASE Stat Lab 09/19/21 23:16 Completed MAG [MAGNESIUM] Stat Lab 09/19/21 23:16 Completed Medication Summary Discontinued Medications Generic Name Dose Route Start Last Admin Trade Name Rick PRN Reason Stop Dose Admin Sodium Chloride 1,000 mls @ 999 mls/hr 09/19/21 22:54 09/20/21 00:02 Sodium Chloride 0.9% 1000 Ml IV 09/19/21 23:54 Infused .Q1H1M STA Infusion Sodium Chloride Confirm 09/19/21 22:57 Sodium Chloride 0.9% 1000 Ml Administered 09/19/21 22:58 Dose 1,000 mls @ ud .ROUTE .STK-MED ONE Ketorolac Tromethamine 30 mg 09/20/21 00:05 Ketorolac Tromethamine 30 Mg/Ml Inj IV 09/20/21 00:06 STAT ONE Lorazepam 1 mg 09/19/21 22:55 09/19/21 22:58 Lorazepam 1 Mg Tablet PO 09/19/21 22:56 1 mg STAT ONE Administration Lorazepam Confirm 09/19/21 22:57 Lorazepam 1 Mg Tablet Administered 09/19/21 22:58 Dose 1 mg .ROUTE .STK-MED ONE Ondansetron HCl 4 mg 09/19/21 23:05 09/19/21 23:06 Ondansetron Hcl 4 Mg/2 Ml Vial IV 09/19/21 23:06 4 mg STAT ONE Administration Ondansetron HCl Confirm 09/19/21 23:06 Ondansetron Hcl 4 Mg/2 Ml Vial Administered 09/19/21 23:07 Dose 4 mg .ROUTE .STK-MED ONE Lab/Rad Data: Laboratory Result Diagrams 09/19/21 23:16 09/19/21 23:16 Laboratory Results 09/19/21 09/19/21 09/19/21 Range/Units 23:57 23:16 23:16 WBC 6.9 (4.0-10.5) K/mm3 RBC 4.23 (4.1-5.4) M/mm3 Hgb 12.1 (12.0-16.0) gm/dl Hct 36.8 (35-47) % MCV 87.0 (78-100) fl MCH 28.6 (26-32) pg MCHC 32.9 (32-36) g/dl RDW 12.9 (11.5-14.0) % Plt Count 347 (150-450) K/mm3 MPV 10.4 (7.5-11.0) fl Gran % 54.4 (36.0-66.0) % Eos # (Auto) 0.61 H (0-0.5) Absolute Lymphs (auto) 2.03 (1.0-4.6) Absolute Monos (auto) 0.49 (0.0-1.3) Lymphocytes % 29.3 (24.0-44.0) % Monocytes % 7.1 (0.0-12.0) % Eosinophils % 8.8 H (0.00-5.0) % Basophils % 0.4 (0.0-0.4) % Absolute Granulocytes 3.76 (1.4-6.9) Basophils # 0.03 (0-0.4) Sodium 142 (137-145) mmol/L Potassium 3.6 (3.5-5.1) mmol/L Chloride 106 (98-107) mmol/L Carbon Dioxide 25 (22-30) mmol/L Anion Gap 14.3 (5-15) MEQ/L BUN 8 (7-17) mg/dL Creatinine 0.63 (0.52-1.04) mg/dL Estimated GFR > 60.0 ML/MIN Glucose 106 (74-106) mg/dL Calcium 9.1 (8.4-10.2) mg/dL Magnesium 2.1 (1.6-2.3) mg/dL Total Bilirubin 0.40 (0.2-1.3) mg/dL AST 23 (14-36) U/L ALT 13 (0-35) U/L Alkaline Phosphatase 71 (38-126) U/L Serum Total Protein 7.2 (6.3-8.2) g/dL Albumin 4.4 (3.5-5.0) g/dL Lipase 59 (23-300) U/L Urine HCG, Qual NEGATIVE (Negative) - Progress Progress: improved Progress Note: 09/20/21 00:11 She is given fluids, Tylenol for headache and Ativan for anxiety, baseline labs are obtained which are grossly unremarkable. Feeling better on reevaluation. I believe patient is having combination of abrupt stop of fluoxetine and start of Wellbutrin causing her symptoms. She is advised to not take Wellbutrin and talk to her primary care tomorrow for possible switching to a different medication for anxiety/depression. Not suicidal or homicidal. Good family support. Do not think she needs psych eval and is stable for discharge with outpatient follow-up. Discussed signs symptoms of worsening needing return to ER which she seems understanding. Counseled pt/family regarding: lab results, diagnosis, need for follow-up - Departure Departure Disposition: Home Clinical Impression: General weakness, Anxiety Condition: Stable Critical Care Time: No Referrals: KAT CARMONA MD [Primary Care Provider] - Follow up/PCP as directed (Tomorrow for reevaluation) Instructions: Anxiety, Adult (DC), Generalized Weakness (DC) Additional Instructions: Stop taking Wellbutrin, follow-up with your primary care for reevaluation tomorrow. Return to ER for worsening symptoms of anxiety or if having suicidal/homicidal ideations etc. Keep yourself well-hydrated with plenty of fluids.
[2021-09-20 00:26] LABS: Appearance CLEAR (CLEAR); Bilirubin NEGATIVE (NEGATIVE); Glucose NEGATIVE (NEGATIVE); Ketones NEGATIVE (NEGATIVE); Protein,Urine Dip NEGATIVE (Negative); RBC TRACE-INTACT Ery/ul (0-5); Specific Gravity 1.025 (1.005-1.025)
[2021-09-20 00:27] LABS: Dipstick done @ ? MAIN LAB; Nitrite NEGATIVE (NEGATIVE); Urobilinogen 0.2 mg/dL (0-1)
[2021-09-20] MEDS ORDERED: TORAdol 30 mg Injection ONE (00:30)
[2021-09-20 00:35] LABS: Bacteria FEW /HPF (NEGATIVE); Epithelial Cells FEW /HPF (FEW); Mucus MODERATE /HPF (NEGATIVE)
[2021-09-20 00:42] VITALS: BP 120/73; PULSE 85; O2SAT 98
[2021-09-20 01:02] LABS: Urine Cultured Indicated? YES
== END 2021-09-20 00:54 | disposition home or self-care (01) ==
LOC: ED 22:26
DX: F41.9 Anxiety disorder, unspecified (principal); R53.1 Weakness; R45.86 Emotional lability; R11.0 Nausea; R10.13 Epigastric pain; Z79.899 Other long term (current) drug therapy
CPT/HCPCS: 36000; 36415; 80053; 81015; 83690; 83735; 84703; 85025; 87086; 96360; 96374; 96375; 99284; J1885; J2405; A9270-GY

== ENCOUNTER 2023-09-25 14:34 | Emergency (ER) | payer OTHER ==
[2023-09-25 14:48] VITALS: RESP 18; TEMP 97.1
[2023-09-25 15:03] LABS: HCG URINE TEST NEGATIVE (NEGATIVE)
[2023-09-25 15:05] LABS: ADD URINE CULTURE? YES (NO); Appearance Clear (Clear); Bacteria None Seen /HPF (None Seen); Bilirubin Negative (Negative); Blood Trace (Negative); Epithelial Cells Moderate /HPF (None Seen); Glucose, Urine Negative (Negative); Hyaline Casts NONE SEEN /LPF (0-2); Ketones Negative (Negative); Leukocyte Esterase Moderate (Negative); Nitrite Negative (Negative); Ph 6.5 (4.6-8.0); Protein,Urine Dip Negative (Negative); RBC 0-2 /HPF (0-5); Urobilinogen 0.2 mg/dL (0.2)
[2023-09-25 15:08] LABS: Absolute Neutrophil Ct (ANC) 2.61 x10^3/uL (1.4-6.9); BASOPHIL % 1.3 % (0.0-0.4); Basophil (Absolute #) 0.07 x10^3/uL (0-0.4); Eosinophil % 7.5 % (0.00-5.0); Eosinophil (Absolute #) 0.39 x10^3/uL (0-0.5); Hematocrit 37.5 % (35-47); Hemoglobin 12.1 g/dL (12.0-16.0); IMMATURE GRAN # 0.01 x10^3u/L (0.00-0.03); IMMATURE GRAN % 0.2 % (0.00-0.4); Lymphocyte (Absolute #) 1.78 x10^3/uL (1.0-4.6); Lymphocytes % 34.2 % (24.0-44.0); Mean Cell Volume 82.8 fL (78-100); Mean Corpuscular Hemoglobin 26.7 pg (26-32); Mean Corpuscular Hgb Concent. 32.3 g/dL (32-36); Mean Platelet Volume 10.1 fL (7.5-11.0); Monocyte (Absolute #) 0.34 x10^3/uL (0.0-1.3); Monocytes % 6.5 % (0.0-12.0); Neutrophil % 50.3 % (36.0-66.0); Platelet Count 331 x10^3/uL (150-450); Red Blood Count 4.53 x10^6/uL (4.1-5.4); Red Cell Distribution Width 12.6 % (11.5-14.0); White Blood Count 5.2 x10^3/uL (4.0-10.5)
[2023-09-25 15:21] LABS: ALBUMIN 4.3 g/dL (3.5-5.0); ANION GAP 12.2 MEQ/L (5-15); BILIRUBIN,TOTAL 0.5 mg/dL (0.2-1.3); Calcium 8.8 mg/dL (8.4-10.2); Creatinine 1 0.78 mg/dL (0.52-1.04); Potassium 3.8 mmol/L (3.5-5.1); Total Protein 7.6 g/dL (6.3-8.2)
[2023-09-25 15:53] VITALS: BP 105/62; PULSE 72; O2SAT 97
--- NOTE | 2023-09-25 15:55 | ERPHSYRPT ---
- History of Present Illness Time Seen by Provider: 09/25/23 15:54 Historian: patient Exam Limitations: no limitations Patient Subjective Stated Complaint: pt here for upper left abd pain for 2 days , no fever or vomiting. loose stool this am Triage Nursing Assessment: pt alert,walked in, resp easy, skin w/d/p. abd soft, moves all ext well. no edema noted Physician History: pt here for upper left abd pain for 2 days , no fever or vomiting. loose stool this am Timing/Duration: day(s) (2 days) Activities at Onset: none Quality: dullness Abdominal Pain Onset Location: [facility] Pain Radiation: no radiation Severity of Pain-Max: mild Severity of Pain-Current: mild Modifying Factors: Improves With: nothing Associated Symptoms: diarrhea Previous symptoms: no prior history Allergies/Adverse Reactions: No Known Drug Allergies Allergy (Verified 09/25/23 14:40) Home Medications: Medroxyprogesterone Acetate [Depo-Provera] 150 mg IM UD 05/08/20 [History] Bupropion HCl Xl 150 mg [Wellbutrin XL 150 MG] 150 mg PO DAILY 09/19/21 [History] Cetirizine HCl [Allergy Relief] 10 mg PO DAILY 09/25/23 [History] Citalopram Hydrobromide [Celexa] 40 mg PO DAILY 09/25/23 [History] Omeprazole 20 mg PO DAILY 09/25/23 [History] Hx Tetanus, Diphtheria Vaccination/Date Given: No Hx Influenza Vaccination/Date Given: No Hx Pneumococcal Vaccination/Date Given: No Immunizations Up to Date: Yes Travel Risk - International Travel Have you traveled outside of the country in past 3 weeks: No - Emerging Infectious Disease Are you exhibiting symptoms associated with any current EIDs: Yes Symptoms: Abdominal Pain - Review of Systems Constitutional: No Fever, No Chills Eyes: No Symptoms Ears, Nose, & Throat: No Symptoms Respiratory: No Cough, No Dyspnea Cardiac: No Chest Pain, No Edema, No Syncope Abdominal/Gastrointestinal: Diarrhea, No Abdominal Pain, No Nausea, No Vomiting Genitourinary Symptoms: No Dysuria Musculoskeletal: No Back Pain, No Neck Pain Skin: No Rash Neurological: No Dizziness, No Focal Weakness, No Sensory Changes Psychological: No Symptoms Endocrine: No Symptoms All Other Systems: Reviewed and Negative - Past Medical History Pertinent Past Medical History: Yes Neurological History: No Pertinent History ENT History: No Pertinent History Cardiac History: No Pertinent History Respiratory History: No Pertinent History Endocrine Medical History: No Pertinent History Musculoskeletal History: No Pertinent History GI Medical History: No Pertinent History History: No Pertinent History Psycho-Social History: Anxiety, Depression Female Reproductive Disorders: No Pertinent History Other Medical History: environmental allergies - Past Surgical History Past Surgical History: No Neuro Surgical History: No Pertinent History Cardiac: No Pertinent History Respiratory: No Pertinent History Gastrointestinal: Appendectomy Genitourinary: No Pertinent History Musculoskeletal: No Pertinent History Female Surgical History: No Pertinent History - Female History Hx Last Menstrual Period: unsure Hx Now: No - Social History Smoking Status: Never smoker Exposure to second hand smoke: No Drug Use: none Patient Lives Alone: No - Nursing Vital Signs Nursing Vital Signs: Initial Vital Signs Temperature 97.1 F 09/25/23 14:47 Pulse Rate 91 H 09/25/23 14:47 Respiratory Rate 18 09/25/23 14:47 Blood Pressure 116/78 09/25/23 14:47 O2 Sat by Pulse Oximetry 98 09/25/23 14:47 Pain Scale Pain Intensity 4 - Physical Exam General Appearance: no apparent distress, alert Eye Exam: PERRL/EOMI, eyes nml inspection Ears, Nose, Throat Exam: normal ENT inspection, pharynx normal, moist mucous membranes Neck Exam: normal inspection, non-tender, supple, full range of motion Respiratory Exam: normal breath sounds, lungs clear, No respiratory distress Cardiovascular Exam: regular rate/rhythm, normal heart sounds Gastrointestinal/Abdomen Exam: soft, No tenderness, No mass Back Exam: normal inspection, normal range of motion, No CVA tenderness, No vertebral tenderness Extremity Exam: normal inspection, normal range of motion, pelvis stable Neurologic Exam: alert, oriented x 3, cooperative, normal mood/affect, nml cerebellar function, sensation nml, No motor deficits Skin Exam: normal color, warm, dry SpO2: 97 - Course Nursing assessment & vital signs reviewed: Yes Ordered Tests: Active Orders 24 hr Category Date Time Status CBC W DIFF Stat Lab 09/25/23 15:00 Completed CMP Stat Lab 09/25/23 15:00 Completed CULTURE,URINE Stat Lab 09/25/23 14:55 Received HCG QUALITATIVE, URINE Stat Lab 09/25/23 14:55 Completed UA W/RFX UR CULTURE Stat Lab 09/25/23 14:55 Completed Lab/Rad Data: Laboratory Result Diagrams 09/25/23 15:00 09/25/23 15:00 Laboratory Results 09/25/23 09/25/23 09/25/23 Range/Units 15:00 15:00 14:55 WBC 5.2 (4.0-10.5) x10^3/uL RBC 4.53 (4.1-5.4) x10^6/uL Hgb 12.1 (12.0-16.0) g/dL Hct 37.5 (35-47) % MCV 82.8 (78-100) fL MCH 26.7 (26-32) pg MCHC 32.3 (32-36) g/dL RDW 12.6 (11.5-14.0) % Plt Count 331 (150-450) x10^3/uL MPV 10.1 (7.5-11.0) fL Gran % 50.3 (36.0-66.0) % Immature Gran % (Auto) 0.2 (0.00-0.4) % Nucleat RBC Rel Count 0.0 (0.00-0.1) % Eos # (Auto) 0.39 (0-0.5) x10^3/uL Immature Gran # (Auto) 0.01 (0.00-0.03) x10^3u/L Absolute Lymphs (auto) 1.78 (1.0-4.6) x10^3/uL Absolute Monos (auto) 0.34 (0.0-1.3) x10^3/uL Absolute Nucleated RBC 0.00 (0.00-0.01) x10^3u/L Lymphocytes % 34.2 (24.0-44.0) % Monocytes % 6.5 (0.0-12.0) % Eosinophils % 7.5 H (0.00-5.0) % Basophils % 1.3 (0.0-0.4) % Absolute Granulocytes 2.61 (1.4-6.9) x10^3/uL Basophils # 0.07 (0-0.4) x10^3/uL Sodium 140 (135-145) mmol/L Potassium 3.8 (3.5-5.1) mmol/L Chloride 109 H (98-107) mmol/L Carbon Dioxide 23 (22-30) mmol/L Anion Gap 12.2 (5-15) MEQ/L BUN 9 (7-17) mg/dL Creatinine 0.78 (0.52-1.04) mg/dL Estimated GFR 108.0 ML/MIN Glucose 99 (74-106) mg/dL Calcium 8.8 (8.4-10.2) mg/dL Total Bilirubin 0.50 (0.2-1.3) mg/dL AST 24 (14-36) U/L ALT 16 (0-35) U/L Alkaline Phosphatase 76 (38-126) U/L Serum Total Protein 7.6 (6.3-8.2) g/dL Albumin 4.3 (3.5-5.0) g/dL Urine Color (Yellow) Urine Appearance (Clear) Urine pH (4.6-8.0) Ur Specific [place] (1.005-1.030) Urine Protein (Negative) Urine Glucose (UA) (Negative) mg/dL Urine Ketones (Negative) Urine Blood (Negative) Urine Nitrite (Negative) Urine Bilirubin (Negative) Urine Urobilinogen (0.2) mg/dL Ur Leukocyte Esterase (Negative) U Hyaline Cast (Auto) (0-2) /LPF Urine Microscopic RBC (0-5) /HPF Urine Microscopic WBC (0-5) /HPF Ur Epithelial Cells (None Seen) /HPF Urine Bacteria (None Seen) /HPF Urine Culture Reflexed (NO) Urine HCG, Qual NEGATIVE (NEGATIVE) 09/25/23 Range/Units 14:55 WBC (4.0-10.5) x10^3/uL RBC (4.1-5.4) x10^6/uL Hgb (12.0-16.0) g/dL Hct (35-47) % MCV (78-100) fL MCH (26-32) pg MCHC (32-36) g/dL RDW (11.5-14.0) % Plt Count (150-450) x10^3/uL MPV (7.5-11.0) fL Gran % (36.0-66.0) % Immature Gran % (Auto) (0.00-0.4) % Nucleat RBC Rel Count (0.00-0.1) % Eos # (Auto) (0-0.5) x10^3/uL Immature Gran # (Auto) (0.00-0.03) x10^3u/L Absolute Lymphs (auto) (1.0-4.6) x10^3/uL Absolute Monos (auto) (0.0-1.3) x10^3/uL Absolute Nucleated RBC (0.00-0.01) x10^3u/L Lymphocytes % (24.0-44.0) % Monocytes % (0.0-12.0) % Eosinophils % (0.00-5.0) % Basophils % (0.0-0.4) % Absolute Granulocytes (1.4-6.9) x10^3/uL Basophils # (0-0.4) x10^3/uL Sodium (135-145) mmol/L Potassium (3.5-5.1) mmol/L Chloride (98-107) mmol/L Carbon Dioxide (22-30) mmol/L Anion Gap (5-15) MEQ/L BUN (7-17) mg/dL Creatinine (0.52-1.04) mg/dL Estimated GFR ML/MIN Glucose (74-106) mg/dL Calcium (8.4-10.2) mg/dL Total Bilirubin (0.2-1.3) mg/dL AST (14-36) U/L ALT (0-35) U/L Alkaline Phosphatase (38-126) U/L Serum Total Protein (6.3-8.2) g/dL Albumin (3.5-5.0) g/dL Urine Color Yellow (Yellow) Urine Appearance Clear (Clear) Urine pH 6.5 (4.6-8.0) Ur Specific [place] 1.010 (1.005-1.030) Urine Protein Negative (Negative) Urine Glucose (UA) Negative (Negative) mg/dL Urine Ketones Negative (Negative) Urine Blood Trace (Negative) Urine Nitrite Negative (Negative) Urine Bilirubin Negative (Negative) Urine Urobilinogen 0.2 (0.2) mg/dL Ur Leukocyte Esterase Moderate A (Negative) U Hyaline Cast (Auto) NONE SEEN (0-2) /LPF Urine Microscopic RBC 0-2 (0-5) /HPF Urine Microscopic WBC 11-20 A (0-5) /HPF Ur Epithelial Cells Moderate A (None Seen) /HPF Urine Bacteria None Seen (None Seen) /HPF Urine Culture Reflexed YES (NO) Urine HCG, Qual (NEGATIVE) - Progress Progress: improved, pain not gone completely Counseled pt/family regarding: lab results, diagnosis, need for follow-up Medical Desision Making - Independent Historian Additional History obtained from: Family - Diagnostic Testing Diagnostic test were ordered, analyzed, and reviewed by me: Yes - Risk of complications Minimal Risk: Minimal risk of morbidity - Departure Departure Disposition: Home Clinical Impression: UTI (urinary tract infection) Qualifiers: Urinary tract infection type: acute pyelonephritis Qualified Code(s): N10 - Acute pyelonephritis Condition: Stable Critical Care Time: No Referrals: KAT CARMONA MD [Primary Care Provider] - Follow Up with PCP/3 days Instructions: Urinary Tract Infection, Adult (DC) Additional Instructions: Discharge/Care Plan TERRIE ESCUDERO was seen on 09/25/23 in the Emergency Room. The patient was counseled regarding Diagnosis,Lab results, Imaging studies, need for follow up and when to return to the Emergency Room. Prescriptions given: Discharge Note I have spoken with the patient and/or caregivers. I have explained the patient's condition, diagnosis and treatment plan based on the information available to me at this time. I have answered the patient's and/or caregiver's questions and addressed any concerns. The patient and/or caregivers have as good understanding of the patient's diagnosis, condition and treatment plan as can be expected at this point. The vital signs have been stable. The patient's condition is stable and appropriate for discharge from the emergency department. The patient will pursue further outpatient evaluation with the primary care physician or other designated or consulting physician as outlined in the discharge instructions. The patient and/or caregivers are agreeable to this plan of care and follow-up instructions have been explained in detail. The patient and/or caregivers have received these instruction. The patient/and or caregivers are aware that any significant change in condition or worsening of symptoms should prompt an immediate return to this or the closest emergency department or call 911. TERRIE ESCUDERO was seen on 09/25/23 n the Emergency Room. At that time you were treated for an emergent condition, during your visit Laboratory, Radiology and/or other procedures may have been ordered. It is very important that you fo llow-up with your Primary Care Physician KAT CARMONA within the next 24-48 hours to review your Emergency Room visit and the final results of testing that was ordered. Some test results such as Urine Cultures, Blood Cultures, and other cultures if ordered will not be finalized for 24-48 hours. If you do not have a Primary Care Provider please call the medical records department at [phone] ext [phone] to obtain a copy of your results or you may sign into our patient portal to obtain these results by visiting us @ [email or web address] and completing the following steps: 1. Click on the Patient Portal link 2. Click the Patient Self Enrollment Link to complete the enrollment form and entering your 3. Once the enrollment form is completed you will receive an email with a temporary ID and password at the email address you provided. 4. Next choose a user name and password. Your user name must be at least 4 c haracters long and your password must be at least 4 characters long. 5. Choose a security question from the list and provide your answer to the question. If you already have signed into the Health Portal you may access your Health Care Information 20/12 by the following steps: 1. Login to our website @ [email or web address] 2. Enter your original user name and password. FAQS The [facility] Health Portal is an online tool that contains your Lab Results, Radiology Reports, Visit History, Discharge Instructions and Health Summary Lab and Radiology Results will not be available for 72 hours on the portal. The Portal is a secure site, passwords are encryted and URLs are re-written so they cannot be copied and pasted. You and authorized family members are the only ones who can access your Portal. Also there is a timeout feature that protects your information if you leave the Portal page open. If you have technical difficulty please use the Contact Us link on the page this will allow you to submit any questions you have regarding the Portal or you may contact the Medical Record Department at [phone] ext [phone]. Prescriptions: Ciprofloxacin [Cipro 500 MG] 500 mg PO BIDAC #20 tablet
[2023-09-25] MEDS ORDERED: Rocephin 1000 MG INJ ONE (15:58)
[2023-09-25] MEDS ORDERED: XYLOCAINE 1% HCL 20 ML MDV ONE (15:59)
[2023-09-25] MEDS: Rocephin 1000 MG INJ IM ONE (16:02)
== END 2023-09-25 16:21 | disposition home or self-care (01) ==
LOC: ED 14:34
DX: N10 Acute pyelonephritis (principal); R10.12 Left upper quadrant pain; Z79.899 Other long term (current) drug therapy
CPT/HCPCS: 36415; 80053; 81001; 81025; 85025; 87086; 96372; 99283; J0696

== ENCOUNTER 2023-12-12 21:17 | Emergency (ER) | payer OTHER ==
--- NOTE | 2023-12-12 21:19 | ERPHSYRPT ---
- History of Present Illness Time Seen by Provider: 12/12/23 21:45 Source: patient Exam Limitations: no limitations Physician History: This patient was walking her dog when she accidentally tripped over the dog leash with the dog and injured her left great toe. Patient is having difficulty bending (flexing and extending) the left great toe. Method of Injury: fell Occurred: just prior to arrival Quality: constant, aching, throbbing Severity of Pain-Max: mild (Moderate) Severity of Pain-Current: mild (Moderate) Lower Extremities Pain: 1st toe: left Modifying Factors: Improves With: movement Associated Symptoms: other (To bear weight but can do so) Allergies/Adverse Reactions: No Known Drug Allergies Allergy (Verified 12/12/23 21:22) Home Medications: Medroxyprogesterone Acetate [Depo-Provera] 150 mg IM UD 05/08/20 [History] Cetirizine HCl [Allergy Relief] 10 mg PO DAILY 09/25/23 [History] Citalopram Hydrobromide [Celexa] 40 mg PO DAILY 09/25/23 [History] Omeprazole 20 mg PO DAILY 09/25/23 [History] Hx Tetanus, Diphtheria Vaccination/Date Given: No Hx Influenza Vaccination/Date Given: No Hx Pneumococcal Vaccination/Date Given: No Travel Risk - International Travel Have you traveled outside of the country in past 3 weeks: No - Emerging Infectious Disease Are you exhibiting symptoms associated with any current EIDs: No Symptoms: Abdominal Pain - Review of Systems Constitutional: No Symptoms Eyes: No Symptoms Ears, Nose, & Throat: No Symptoms Respiratory: No Symptoms Cardiac: No Symptoms Abdominal/Gastrointestinal: No Symptoms Genitourinary Symptoms: No Symptoms Musculoskeletal: Injury (Left great toe. With pain and swelling) Skin: No Symptoms Neurological: No Symptoms Psychological: No Symptoms Endocrine: No Symptoms Hematologic/Lymphatic: No Symptoms Immunological/Allergic: No Symptoms All Other Systems: Reviewed and Negative - Past Medical History Pertinent Past Medical History: Yes Neurological History: No Pertinent History ENT History: No Pertinent History Cardiac History: No Pertinent History Respiratory History: No Pertinent History Endocrine Medical History: No Pertinent History Musculoskeletal History: No Pertinent History GI Medical History: No Pertinent History History: No Pertinent History Psycho-Social History: Anxiety, Depression Female Reproductive Disorders: No Pertinent History Other Medical History: environmental allergies - Past Surgical History Past Surgical History: No Neuro Surgical History: No Pertinent History Cardiac: No Pertinent History Respiratory: No Pertinent History Gastrointestinal: Appendectomy Genitourinary: No Pertinent History Musculoskeletal: No Pertinent History Female Surgical History: No Pertinent History - Social History Smoking Status: Never smoker Exposure to second hand smoke: No Drug Use: none Patient Lives Alone: No - Social Determinants of Health Do you worry about a steady place to live?: No In the past 12 months,have you had to go without utilities?: No Transportation Issues: No Has anyone in your support network made you feel unsafe?: No Have you or anyone in your house had to go without enough: No - Nursing Vital Signs Nursing Vital Signs: Initial Vital Signs Temperature 97.8 F 12/12/23 21:20 Pulse Rate 102 H 12/12/23 21:20 Respiratory Rate 16 12/12/23 21:20 Blood Pressure 124/78 12/12/23 21:20 O2 Sat by Pulse Oximetry 99 12/12/23 21:20 Pain Scale Pain Intensity 4 - Physical Exam General Appearance: no apparent distress, alert, anxiety Eyes, Ears, Nose, Throat Exam: normal ENT inspection, moist mucous membranes Neck Exam: normal inspection, non-tender, supple, full range of motion Cardiovascular/Respiratory Exam: chest non-tender, no respiratory distress Gastrointestinal/Abdominal Exam: non-tender Back Exam: normal inspection, normal range of motion, No CVA tenderness, No vertebral tenderness Hips Exam: bilateral: non-tender, normal inspection, normal range of motion, no evidence of injury Legs Exam: bilateral leg: non-tender, normal inspection, normal range of motion, no evidence of injury Knees Exam: bilateral knee: non-tender, normal inspection, normal range of motion, no evidence of injury Ankle Exam: bilateral ankle: non-tender, normal inspection, normal range of motion, no evidence of injury Foot Exam: right foot: non-tender, normal inspection, normal range of motion, no evidence of injury, left foot: bone tenderness (Left first toe), limited range of motion (Left first toe), soft tissue tenderness (Left first toe) Neuro/Tendon Exam: normal sensation, normal motor functions, normal tendon functions, responds to pain, no evidence tendon injury Mental Status Exam: alert, oriented x 3, cooperative Skin Exam: normal color, warm, dry SpO2 Interpretation: normal O2 Delivery: Room Air - Course Nursing assessment & vital signs reviewed: Yes Ordered Tests: Active Orders 24 hr Category Date Time Status TOE(S) (MIN 2 VIEWS) Stat Exams 12/12/23 21:31 Taken - Progress Progress: unchanged, pain not gone completely, re-examined Progress Note: 12/12/23 21:55 Medical decision making and the assignment of low complexity to this patient's medical issue today is based on review of the patient's past medical history, review of the patient's medication list, review of patient drug allergy list, history present illness and physical findings on examination. The workup in this patient inclludes x-ray of the left great toe. I interpreted the preliminary report on this patient's left great toe x-ray. There are no acute fractures or dislocations present. Counseled pt/family regarding: diagnosis, need for follow-up, rad results Medical Desision Making - Diagnostic Testing Diagnostic test were ordered, analyzed, and reviewed by me: Yes Radiological Interpretation: Interpreted by me - Risk of complications Minimal Risk: Minimal risk of morbidity - Departure Departure Disposition: Home Clinical Impression: Injury of left toe Condition: Stable Critical Care Time: No Referrals: KAT CARMONA MD [Primary Care Provider] - Follow up/PCP as directed Additional Instructions: Ice pack/bath 3 times a day for the next 72 hours. After you take your Percocet given to you this evening, use Tylenol and ibuprofen alternating every 4 hours while awake. If your pain persists beyond 72 hours or worsens at any time, you can follow-up with [facility] deputy clerk, Dr. Olguin or be seen at the [facility] orthopedic clinic Tuesday through Tuesday 8 AM to 10 AM. It is a walk-in clinic and you do not need to have an appointment.
[2023-12-12 21:22] VITALS: RESP 16; TEMP 97.8
[2023-12-12] MEDS ORDERED: PERCOCET TABLET 5/325MG ONE (22:01)
[2023-12-12] MEDS: PERCOCET TABLET 5/325MG PO STA (22:09)
[2023-12-12 22:15] VITALS: BP 113/59; PULSE 80; O2SAT 100
--- NOTE | 2023-12-13 08:45 | XRAY ---
Indication: Pain following fall. Comparison: None 3 view left great toe demonstrates soft tissue swelling. No acute fracture, dislocation, or suspicious bony lesions.
== END 2023-12-12 22:17 | disposition home or self-care (01) ==
LOC: ED 21:17
DX: S99.922A Unspecified injury of left foot, initial encounter (principal); W18.49XA Other slipping, tripping and stumbling without falling, initial encounter; Y93.K1 Activity, walking an animal; Z79.899 Other long term (current) drug therapy
CPT/HCPCS: 73660; 99283; A9270-GY

== ENCOUNTER 2025-02-21 12:29 | Emergency (ER) | payer OTHER ==
--- NOTE | 2025-02-21 12:38 | ERPHSYRPT ---
- History of Present Illness Time Seen by Provider: 02/21/25 12:37 Source: patient Exam Limitations: no limitations Physician History: This is a 24-year-old white female patient who presents to the emergency department with left upper molar dental pain that began this morning. Patient states she has an appointment to see a dentist on February 28. Patient takes no medications chronically and she has no known drug allergies. Her primary care provider is Dr. Carmona Severity: mild (To moderate) ENT Location: dental (Dental) Prearrival Treatment: over the counter meds Associated Symptoms: tooth pain (Left upper molar) Allergies/Adverse Reactions: No Known Drug Allergies Allergy (Verified 12/12/23 21:22) Hx Tetanus, Diphtheria Vaccination/Date Given: No Hx Influenza Vaccination/Date Given: No Hx Pneumococcal Vaccination/Date Given: No Travel Risk - International Travel Have you traveled outside of the country in past 3 weeks: No - Emerging Infectious Disease Are you exhibiting symptoms associated with any current EIDs: Yes Symptoms: Headaches/Body Aches/, Vomitting - Review of Systems Constitutional: No Symptoms Eyes: No Symptoms Ears, Nose, & Throat: No Symptoms, Other (Left upper molar pain) Respiratory: No Symptoms Cardiac: No Symptoms Abdominal/Gastrointestinal: No Symptoms Genitourinary Symptoms: No Symptoms Musculoskeletal: No Symptoms Skin: No Symptoms Neurological: No Symptoms Psychological: No Symptoms Endocrine: No Symptoms Hematologic/Lymphatic: No Symptoms Immunological/Allergic: No Symptoms All Other Systems: Reviewed and Negative - Past Medical History Pertinent Past Medical History: Yes Neurological History: Migraines ENT History: No Pertinent History Cardiac History: No Pertinent History Respiratory History: No Pertinent History Endocrine Medical History: No Pertinent History Musculoskeletal History: No Pertinent History GI Medical History: No Pertinent History History: No Pertinent History Psycho-Social History: Anxiety, Depression Female Reproductive Disorders: No Pertinent History Other Medical History: environmental allergies - Past Surgical History Past Surgical History: Yes Neuro Surgical History: No Pertinent History Cardiac: No Pertinent History Respiratory: No Pertinent History Gastrointestinal: Appendectomy Genitourinary: No Pertinent History Musculoskeletal: No Pertinent History Female Surgical History: No Pertinent History - Female History Hx Last Menstrual Period: depo - Social History Smoking Status: Never smoker Exposure to second hand smoke: No Drug Use: none - Social Determinants of Health Will the patient participate in the screening: Yes Do you worry about a steady place to live?: No In the past 12 months,have you had to go without utilities?: No Transportation Issues: No Has anyone in your support network made you feel unsafe?: No Have you or anyone in your house had to go w/o enough food: No - Nursing Vital Signs Nursing Vital Signs: Initial Vital Signs Temperature 97.0 F 02/21/25 12:57 Pulse Rate 70 02/21/25 12:57 Respiratory Rate 16 02/21/25 12:57 Blood Pressure 106/58 02/21/25 12:57 O2 Sat by Pulse Oximetry 98 02/21/25 12:57 Pain Scale Pain Intensity 10 - Physical Exam General Appearance: no apparent distress, alert, anxiety Eye Exam: bilateral eye: normal inspection, PERRL, EOMI, abnormal EOM Ear Exam: bilateral ear: auricle normal Nasal Exam: normal inspection Throat Exam: dental tenderness (Left upper molar tenderness without abscess), moist mucus membranes Neck Exam: normal inspection, non-tender, supple, full range of motion Cardiovascular/Respiratory Exam: chest non-tender, no respiratory distress Abdominal Exam: non-tender Neurologic Exam: alert, oriented x 3, cooperative, contact lens edge buffer II-XII nml as tested, nml cerebellar function, nml station & gait, sensation nml Skin Exam: normal color, warm, dry SpO2 Interpretation: normal O2 Delivery: Room Air - Course Nursing assessment & vital signs reviewed: Yes - Progress Progress: unchanged, pain not gone completely, re-examined Progress Note: 02/21/25 13:26 My medical decision making and the assignment of low complexity of this patient's medical issue today is based on review of the patient's past medical history, reviewed the patient's medication list, reviewed patient drug allergy list, history present illness and physical findings on examination. The workup in this patient does not necessitate laboratory radiographic studies. Differential diagnosis includes but is not limited to gingivitis, dental caries causing pain, dental fracture Counseled pt/family regarding: diagnosis, need for follow-up Medical Desision Making - Diagnostic Testing Diagnostic test were ordered, analyzed, and reviewed by me: No - Risk of complications Low Risk: Low risk of morbidity from additional dx testing or treatment The pt has a mod risk of morbidity or mortality based on: Need for prescription drug management - Departure Departure Disposition: Home Clinical Impression: Pain due to dental caries Condition: Stable Critical Care Time: No Referrals: KAT CARMONA MD [Primary Care Provider, [facility]ILY [facility]ACTICE] - Follow up/PCP as directed Additional Instructions: Add 600 mg ibuprofen with food every 6 hours with Tylenol 650 mg orally every 6 hours. Hold the Tylenol 650 mg while taking the Percocet 5/325 pain medication. Keep your appointment with the dentist for definitive care Prescriptions: Oxycodone HCl/Acetaminophen [Percocet 5-325 mg Tablet] 1 each PO Q8H PRN PRN #6 tablet MDD 3 PRN Reason: Moderate To Severe Pain Amoxicillin 500 mg Cap [Amoxil 500 mg] 500 mg PO TID #30 cap
[2025-02-21 13:06] VITALS: RESP 16; TEMP 97
[2025-02-21 13:09] VITALS: O2SAT 99
[2025-02-21] MEDS ORDERED: PERCOCET TABLET 5/325MG ONE (13:36)
[2025-02-21] MEDS ORDERED: AMOXIL 500 MG ONE (13:36)
[2025-02-21] MEDS: AMOXIL 500 MG PO ONE (13:38)
[2025-02-21] MEDS: PERCOCET TABLET 5/325MG PO STA (13:39)
[2025-02-21 14:01] VITALS: PULSE 73
[2025-02-21 14:04] VITALS: BP 104/73
== END 2025-02-21 14:05 | disposition home or self-care (01) ==
LOC: ED 12:29
DX: K02.9 Dental caries, unspecified (principal); K08.89 Other specified disorders of teeth and supporting structures; Z79.891 Long term (current) use of opiate analgesic

== ENCOUNTER 2025-02-22 16:24 | Emergency (ER) | payer OTHER ==
[2025-02-22 16:41] VITALS: BP 132/84; PULSE 90; TEMP 97.3; O2SAT 100
[2025-02-22] MEDS ORDERED: ZOFRAN ODT 4 MG ONE (17:00)
--- NOTE | 2025-02-22 17:03 | ERPHSYRPT ---
- History of Present Illness Patient Subjective Stated Complaint: pt c/o of mouth pain and was at this ER yesterday and was given [place] 5 and Amoxicillin 500mg and pt is vomiting today and has a headache Triage Nursing Assessment: Pt was brought to the ER by a friend, veena pollack, rates pain as 03/08, reports that the mouth pain began on the left side and it now radiates to the right side, N&V, skin n/w/d, pulses normal, no difficulty breathing, no chest pain, has a dentist appt on 02/28/2025 Physician History: Tooth ache, patient was seen yesterday evaluated in the emergency room and placed on amoxicillin and Percocet, which take the pain medication she gets nauseated, her pain is worse in the upper teeth today worse on the right yesterday was worse on the left, she has schedule appoint with her dentist next week Severity: moderate ENT Location: dental Allergies/Adverse Reactions: No Known Drug Allergies Allergy (Verified 02/22/25 16:40) Home Medications: Ferrous Sulfate [Ferosul] 325 mg PO DAILY 02/22/25 [History] Rimegepant Sulfate [Nurtec Odt] 75 mg SL UD PRN 02/22/25 [History] Hx Tetanus, Diphtheria Vaccination/Date Given: No Hx Influenza Vaccination/Date Given: No Hx Pneumococcal Vaccination/Date Given: No Travel Risk - International Travel Have you traveled outside of the country in past 3 weeks: No - Emerging Infectious Disease Are you exhibiting symptoms associated with any current EIDs: No Symptoms: Headaches/Body Aches/, Vomitting - Past Medical History Pertinent Past Medical History: Yes Neurological History: Migraines ENT History: No Pertinent History Cardiac History: No Pertinent History Respiratory History: No Pertinent History Endocrine Medical History: No Pertinent History Musculoskeletal History: No Pertinent History GI Medical History: No Pertinent History History: No Pertinent History Psycho-Social History: Anxiety, Depression Female Reproductive Disorders: No Pertinent History Other Medical History: environmental allergies - Past Surgical History Past Surgical History: Yes Neuro Surgical History: No Pertinent History Cardiac: No Pertinent History Respiratory: No Pertinent History Gastrointestinal: Appendectomy Genitourinary: No Pertinent History Musculoskeletal: No Pertinent History Female Surgical History: No Pertinent History - Female History Hx Last Menstrual Period: depo Hx Now: No - Social History Smoking Status: Never smoker Exposure to second hand smoke: No Drug Use: none - Social Determinants of Health Will the patient participate in the screening: Yes Do you worry about a steady place to live?: No Do you have any problems with any of the following?: No known problems In the past 12 months,have you had to go without utilities?: No Transportation Issues: No Has anyone in your support network made you feel unsafe?: No Have you or anyone in your house had to go w/o enough food: No - Nursing Vital Signs Nursing Vital Signs: Initial Vital Signs Temperature 97.3 F 02/22/25 16:34 Pulse Rate 90 02/22/25 16:34 Blood Pressure 132/84 02/22/25 16:34 O2 Sat by Pulse Oximetry 100 02/22/25 16:34 Pain Scale Pain Intensity 10 - Physical Exam General Appearance: alert Eye Exam: bilateral eye: normal inspection, PERRL, EOMI Nasal Exam: normal inspection Throat Exam: dental tenderness (Poor dentition, tenderness to upper teeth) Neck Exam: normal inspection, non-tender, supple, full range of motion Cardiovascular/Respiratory Exam: chest non-tender, regular rate/rhythm Neurologic Exam: alert, oriented x 3, circuit board assembler II-XII nml as tested Skin Exam: normal color, warm, dry SpO2 Interpretation: normal SpO2: 100 - Progress Progress Note: 02/22/25 16:59 Recommended Peridex, continue amoxicillin, will add Zofran ODT with the Percocet, I also recommended that she take half the Percocet instead of a full 1 - Departure Departure Disposition: Home Clinical Impression: Toothache Condition: Stable Critical Care Time: No Referrals: KAT CARMONA MD [Primary Care Provider, [facility]ACTICE] - Follow up/PCP as directed Instructions: Dental Pain (DC) Additional Instructions: Follow-up to dentist as scheduled Prescriptions: Ondansetron ODT 4 MG [Zofran Odt 4 mg] 4 mg PO Q6H PRN PRN #10 tablet PRN Reason: Vomiting Chlorhexidine Gluconate [Peridex] See Rx Instructions .ROUTE [facility] #[id number]
[2025-02-22] MEDS: ZOFRAN ODT 4 MG PO ONE (17:05)
== END 2025-02-22 17:18 | disposition home or self-care (01) ==
LOC: ED 16:24
DX: K08.89 Other specified disorders of teeth and supporting structures (principal); Z79.899 Other long term (current) drug therapy